=== PATIENT | male | born 1985 | race African-American/Black ===

== ENCOUNTER 2022-04-09 17:59 | Emergency (ER) | payer OTHER, SELFPAY ==
--- NOTE | ~2022-04-09 | XR_ITS ---
EXAMINATION: XR HAND, RIGHT CLINICAL INFORMATION: Pain and swelling COMPARISON: None TECHNIQUE: PA, lateral, and oblique views of the right hand. FINDINGS: Minimally distracted volar angulated fracture of the mid fifth metacarpal is seen with approximately 30 degrees angulation to the fracture. Fifth MCP articular surface is uninvolved. There is associated soft tissue swelling in this location. No other acute bony abnormality. XR/XR hand RT 2V IMPRESSION: Volar angulated mid diaphyseal fifth metacarpal fracture.
[2022-04-09 18:01] VITALS: BP 132/59; PULSE 70; RESP 16; TEMP 35.6; O2SAT 97; BMI 39.7
--- NOTE | 2022-04-09 19:03 | ED.EXTPRO ---
HPI - Extremity Problem General Chief complaint: Extremity Problem Stated complaint: R hand swollen/INJ Time Seen by Provider: 04/09/22 18:51 Source: patient Mode of arrival: ambulatory Limitations: no limitations History of Present Illness HPI Narrative: Patient comes to the emergency room complaining of right-sided hand pain. 1 hour prior to arrival, patient punched a door. Patient complaining of swelling and pain over the 5th metacarpal. Patient did not sustain any other injuries. Related Data Previous Rx's Medication Instructions Recorded ibuprofen 600 mg tablet 600 mg PO TID PRN pain #20 tabs 04/09/22 Allergies Allergy/AdvReac Type Severity Reaction Status Date / Time No Known Allergies Allergy Verified 04/09/22 19:04 Review of Systems Review of Systems: Constitutional : No Weight loss, No Fever, No Chills, No Night Sweats, No Fatigue, No Malaise ENT/Mouth : No Hearing loss, No Ear Pain, No Nasal Congestion, No Sinus Pain, No Hoarseness, No sore throat, No Rhinorrhea, No Swallowing Difficulty Eyes: No Eye Pain, No Swelling, No Redness, No Foreign Body, No Discharge, No Vision Changes Cardiovascular : No Chest Pain, No SOB, No Dyspnea on Exertion, No Orthopnea, No Edema, No Palpitations Respiratory : No Cough, No Sputum, No Wheezing, No Smoke Exposure, No Dyspnea Gastrointestinal : No Nausea, No Vomiting, No Diarrhea, No Constipation, No abdominal Pain, No Hematochezia, No Melena Genitourinary : no irregular bleeding, No Dysuria, No Urinary Frequency, No Hematuria, No Urinary Incontinence, No Urgency, No Flank Pain, No Urinary Flow Changes, No Hesitancy Musculoskeletal : Complaining of right-sided hand pain, No Myalgias, No Joint Swelling Skin : No Skin Lesions, No rash Neuro : No Weakness, No Numbness, No Paresthesias, No Loss of Consciousness, No Dizziness, No Headache Psych : No Anxiety/Panic, No Depression, No SI/HI/AH/VH, No Social Issues, Heme/Lymph: No Bruising, No Bleeding,No Lymphadenopathy Endocrine : No Polyuria, No Polydipsia, No Temperature Intolerance Physical Exam Vital Signs: Vital Signs: Last Vital Signs Temp 96.0 F L 04/09/22 18:01 Pulse 70 04/09/22 18:01 Resp 16 04/09/22 18:01 BP 132/59 L 07/25/22 18:01 Pulse Ox 97 04/09/22 18:01 O2 Del Method 04/09/22 18:01 BMI result Body Mass Index 39.7 Const: Other: Appearance: Alert. Oriented X3. No acute distress. Eyes: Pupils equal, round and reactive to light. ENT: Pharynx normal. Neck: Normal inspection. Neck supple. No lymph nodes noted. No crepitus CVS: Normal heart rate and rhythm. Pulses normal. Normal S1 and S2 Respiratory: No respiratory distress. Breath sounds normal. No Wheezing. No rales Abdomen: Soft and nontender. No rigidity. No distention. Skin: Skin warm and dry. Normal skin color. Normal skin turgor. Extremities: Patient has swelling and mild deformity phipps to the dorsal aspect of the right hand above the 5th metacarpal, patient is able to flex and extend all fingers Neuro: Oriented X 3. No motor deficit. No sensory deficit. Moving all extremities. No slurred speech. CN 2 through 12 grossly intact Psych: calm, cooperative, normal affect Course Course Course Narrative: I discussed the x-ray findings with Dr. Salas. At this time, the skin is not tenting, it is a closed fracture, no need for reduction. Patient instructed to follow-up with Dr. Salas tomorrow, as he may need surgery for this. Patient's hand was splinted. Patient was given p.o. ibuprofen MDM - Extremity (Nontraumatic) Imaging Data Hand x-ray: Radiologist's impression: FINDINGS: Minimally distracted volar angulated fracture of the mid fifth metacarpal is seen with approximately 30 degrees angulation to the fracture. Fifth MCP articular surface is uninvolved. There is associated soft tissue swelling in this location. No other acute bony abnormality. XR/XR hand RT 2V IMPRESSION: Volar angulated mid diaphyseal fifth metacarpal fracture. Discharge Plan Discharge Clinical Impression: Closed boxer's fracture Patient Disposition: Home, Self-Care Instructions: Boxer Fracture (ED) Additional Instructions: Please call Dr. Salas office tomorrow to schedule an appointment. Also, Please follow-up with your primary care physician tomorrow. If you have any worsening or new symptoms, please return to the emergency room or call 911 Prescriptions: New ibuprofen 600 mg tablet 600 mg PO TID PRN (Reason: pain) Qty: 20 0RF Referrals: Brittanie Salas MD [Physician] - 04/10/22 9:00 am (Volar angulated mid diaphyseal 5th metacarpal fracture)
[2022-04-09] MEDS: Ibuprofen 600 MG TABLET PO (19:43)
== END 2022-04-09 20:21 | disposition home or self-care (01) ==
PROVIDERS: Emergency Provider Emergency Medicine
DX: S62.201A Unspecified fracture of first metacarpal bone, right hand, initial encounter for closed fracture (principal); Y29.XXXA Contact with blunt object, undetermined intent, initial encounter; Y93.9 Activity, unspecified; Y92.9 Unspecified place or not applicable; Y99.9 Unspecified external cause status; Z79.899 Other long term (current) drug therapy
CPT/HCPCS: 29130; 73120; 99283; 99284

== ENCOUNTER 2022-04-12 07:19 | Day surgery (SDC) | payer OTHER, SELFPAY ==
--- NOTE | ~2022-04-12 | FL_ITS ---
EXAMINATION: XR FLUOROSCOPY WITH IMAGES CLINICAL INFORMATION: Fracture right fifth metacarpal shaft. ORIF. COMPARISON: Radiographs right hand 04/09/2022 TECHNIQUE: Fluoroscopy performed by Dr. Brittanie Salas. Fluoroscopy time: 18 seconds. Cumulative Dose: 0.6151 mGy. DAP: 0.0372 Gy-cm2. Images: 5. FINDINGS: Fracture mid shaft right fifth metacarpal is reduced with orthopedic pin through long axis of the bone. Fracture fragments are in near-anatomic alignment. No dislocation or destructive process. FL/FL guidance in OR IMPRESSION: Fluoroscopy for orthopedic procedure.
[2022-04-12 07:38] VITALS: BMI 39.7
--- NOTE | 2022-04-12 07:42 | P.OP_ITS ---
Operative Note Operative Note Date of Service: 04/12/22 Narrative: Operative Note Narrative: Preop diagnosis: 1. right 5th Metacarpal Shaft fracture Postop diagnosis: Same Procedure: 1. right 5th Metacarpal fracture closed reduction percutaneous pinning 2. Ulnar nerve block Surgeon: Brittanie Salas MD Anesthesia: General Anesthesia Findings: Metacarpal fracture Implants: 0.062 K-wires times 2 Tourniquet time: None EBL: Minimal Specimen: None Drains: None Complications: None Disposition: Brought to the recovery room in stable condition Plan: Follow-up in 10-14 days for a wound check, postop radiographs and for placement in a short-arm cast or splint Anticipate K-wire removal at 4-5 weeks postop based on interval bony healing Educate the patient that full fracture healing anticipated in approximately 8-12 weeks. Indications: The patient is 36 years old with a right 5th metacarpal shaft fracture . The risks and benefits of operative treatment, including but not limited to risk of damage to blood vessels, nerves, tendons, infection, recurrence, delayed or nonunion of fracture, persistent pain or numbness, incomplete resolution of preoperative symptoms, or need for further surgery were discussed with the patient and they wished to proceed with surgery. Procedure: Once consent was obtained patient was brought back to the operating suite and placed in the operating table in a supine position. Perioperative antibiotics and general anesthesia was administered by the anesthesia team. A tourniquet was applied to the proximal aspect of the right upper extremity and the limb was prepped and draped in a standard surgical fashion. Tourniquet was not inflated during the case. The FluoroScan was used during the case to assist with our fracture reduction and placement of all implants. A closed reduction was performed on the patient's right 5th metacarpal shaft fracture. I placed a single 0.062 K- wire retrograde through the head of the right 5th metacarpal extending proximally across the fracture site to the base of the metacarpal. A 2nd 0.062 K-wire was placed transversely through the neck of the 5th metacarpal extending into the head and neck of the 4th metacarpal. Fracture alignment was assessed for both angular and rotational malalignment. Once satisfied with our fracture reduction and implant placement, the K-wires were bent and cut short and pin caps applied. Final fluoroscopic images were then obtained. The wounds were copiously irrigated with normal saline. An ulnar nerve block was then performed by infiltrating about the ulnar nerve at the wrist with some 1% lidocaine with epinephrine for postop pain control. A Sterile dressing and short volar splint was applied. The patient appears to have tolerated the procedure well and with no complications. All digits were well vascularized at the conclusion of the case.
[2022-04-12 07:48] VITALS: BP 134/72; PULSE 66; RESP 16; TEMP 36.9; O2SAT 98
--- NOTE | 2022-04-12 08:54 | MHC.SHP ---
Pre-Procedural Eval Section A Date of Service: 04/12/22 The patient is an INPATIENT: No Changes since office visit: No Cold of Flu in the past 2 weeks, No New Medical Problems, No Changes in Medication and No Patient answered all questions The History & Physical has been completed within 30 days and I have reviewed it.: Yes Section B Chief Complaint: Displaced fracture of fifth metatarsal bone, right Allergies: Allergies Allergy/AdvReac Type Severity Reaction Status Date / Time No Known Allergies Allergy Verified 04/10/22 13:30 Plan I have reviewed the history and physical and performed a pertinent physical examination on my patient. No changes have occurred unless specified.
--- NOTE | 2022-04-12 09:36 | P.CONAN_ITS ---
HPI - Anesthesia Eval Consult details Narrative: 36 M for metacarpal orif PMFSH Active Problems Active Problems: All Active Problems (Updated 04/10/22 @ 14:39 by Brittanie Salas MD) Fracture of shaft of fifth metacarpal bone of right hand (Acute) Past Medical History Medical History Anxiety and depression Family History Family history of problems with anesthesia: No Surgical History Surgical History History of repair of ACL History of Problems with Anesthesia: No Social History Social History Patient Tobacco Use Status: Former Tobacco user Quit Date: 2019 Use of substances other than those prescribed or required for medical reasons: Yes Substance Use Frequency: Occasionally Are you DNR?: No Advance Directives: No Advance Directives Information Provided: Yes Current occupational status: employed 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 [employer] Allergies Allergy/AdvReac Type Severity Reaction Status Date / Time No Known Allergies Allergy Verified 04/10/22 13:30 Home Medications Medication Instructions Recorded Confirmed Last Taken Type buspirone 10 mg tablet 10 mg PO BID 04/10/22 04/12/22 Unknown History ergocalciferol (vitamin D2) 1,250 1,250 mcg PO QWEEK 04/10/22 04/12/22 Unknown History mcg (50,000 unit) capsule sertraline 100 mg tablet 100 mg PO DAILY 04/10/22 04/12/22 Unknown History Exam Exam Date and Time: April 12, 2022 0936 Height,Weight and Vital Signs: Height 5 ft 11 in Weight 285 lb Last Vital Signs Temp 98.4 F 04/12/22 07:48 Pulse 66 04/12/22 07:48 Resp 16 04/12/22 07:48 BP 134/72 04/12/22 07:48 Pulse Ox 98 04/12/22 07:48 O2 Del Method 04/12/22 07:48 Airway Mallampati Class: II TM Dist: >3cm Neck ROM: Full Partial: Upper and Lower Loose/Missing/Broken Teeth: Yes Assessment and Plan Assessment Anesthesia Assessment: Anesthesia Plan Discussed and Chart Reviewed Final Anesthetic Review Family History of Problems with Anesthesia: No History of Problems with Anesthesia: No NPO: Yes ASA Class: III Final Preanesthetic Review: No Changes in Pt Med Stat, Meds/Allgs Chart Reviewed, Consent Obtained/Reviewed and Anes Risks/Benef Reviewed Patient Risk: Intermediate Procedure Risk: Low Anesthetic Plan Anesthetic Plan: GA Disposition: Standard PACU
[2022-04-12 10:05] VITALS: BP 138/72; PULSE 76; RESP 20; TEMP 36.4; O2SAT 100
[2022-04-12 10:10] VITALS: BP 153/88; PULSE 65; RESP 20; O2SAT 96
[2022-04-12 10:15] VITALS: BP 145/78; PULSE 58; RESP 20; O2SAT 95
[2022-04-12 10:20] VITALS: BP 148/74; PULSE 58; RESP 20; O2SAT 95
[2022-04-12] MEDS: Ketorolac Tromethamine 30 MG/ML VIAL IVPUSH (10:20)
[2022-04-12 10:35] VITALS: BP 139/73; PULSE 74; RESP 20; TEMP 36.5; O2SAT 100
== END 2022-04-12 11:00 | disposition home or self-care (01) ==
LOC: HO.SSS 07:19
PROVIDERS: Visit Provider Orthopaedic Surgery
PROC: (CPT 26615; principal; 2022-04-12 09:10)
DX: S62.326A Displaced fracture of shaft of fifth metacarpal bone, right hand, initial encounter for closed fracture (principal); F41.8 Other specified anxiety disorders; W22.09XA Striking against other stationary object, initial encounter; Y93.89 Activity, other specified; Y92.9 Unspecified place or not applicable; Y99.8 Other external cause status; Z79.899 Other long term (current) drug therapy; Z87.891 Personal history of nicotine dependence
CPT/HCPCS: 26608; J0690; J1100; J1885; J2250; J2405; J2795; J3010

== ENCOUNTER 2022-04-14 14:27 | Emergency (ER) | payer OTHER, SELFPAY ==
[2022-04-14 14:33] VITALS: BP 163/55; PULSE 56; RESP 16; TEMP 36.7; O2SAT 96; BMI 39.7
--- NOTE | 2022-04-14 15:06 | ED.RECABL ---
HPI - Recheck/Abnormal Lab/Rx General Chief Complaint: General Medical Stated Complaint: needs cast rewrapped Time Seen by Provider: 04/14/22 14:30 Source: patient and family Mode of arrival: ambulatory Limitations: no limitations History of Present Illness HPI narrative: 36-year-old male presenting to the ER with complaints of ?need cast re-wrapped . He has a history of a placed fracture of 5th metacarpal bone who is now status post closed reduction with percutaneous pinning by Dr. Osmin Gu on 04/12/2022 who is placed in a partial hard cast/splint with Yevgeniy wrap at that time although reports today he wants to take a shower and he did by the bag to put over his arm although was not tight enough and water got into the splint and now the splint is wet and smells he says. He denies any other symptoms complaints or concerns at this time. Related Data Home Medications Medication Instructions Recorded Confirmed buspirone 10 mg tablet 10 mg PO BID 04/10/22 04/12/22 ergocalciferol (vitamin D2) 1,250 1,250 mcg PO QWEEK 04/10/22 04/12/22 mcg (50,000 unit) capsule sertraline 100 mg tablet 100 mg PO DAILY 04/10/22 04/12/22 Previous Rx's Medication Instructions Recorded ibuprofen 600 mg tablet 600 mg PO TID PRN pain #20 tabs 04/09/22 oxycodone-acetaminophen 5 mg-325 1 tab PO Q6H PRN pain #10 tabs 04/12/22 mg tablet Allergies Allergy/AdvReac Type Severity Reaction Status Date / Time No Known Allergies Allergy Verified 04/14/22 14:33 Review of Systems Review of Systems: Constitutional : No Weight loss, No Fever, No Chills, No Night Sweats, No Fatigue, No Malaise ENT/Mouth : No Hearing loss, No Ear Pain, No Nasal Congestion, No Sinus Pain, No Hoarseness, No sore throat, No Rhinorrhea, No Swallowing Difficulty Eyes: No Eye Pain, No Swelling, No Redness, No Foreign Body, No Discharge, No Vision Changes Cardiovascular : No Chest Pain, No SOB, No Dyspnea on Exertion, No Orthopnea, No Edema, No Palpitations Respiratory : No Cough, No Sputum, No Wheezing, No Smoke Exposure, No Dyspnea Gastrointestinal : No Nausea, No Vomiting, No Diarrhea, No Constipation, No abdominal Pain, No Hematochezia, No Melena Genitourinary : no irregular bleeding, No Dysuria, No Urinary Frequency, No Hematuria, No Urinary Incontinence, No Urgency, No Flank Pain, No Urinary Flow Changes, No Hesitancy Musculoskeletal : + right hand joint pain, No Myalgias, No Joint Swelling Skin : No Skin Lesions, No rash Neuro : No Weakness, No Numbness, No Paresthesias, No Loss of Consciousness, No Dizziness, No Headache Psych : No Anxiety/Panic, No Depression, No SI/HI/AH/VH, No Social Issues, Heme/Lymph: No Bruising, No Bleeding,No Lymphadenopathy Endocrine : No Polyuria, No Polydipsia, No Temperature Intolerance Yes all other systems are reviewed and are negative [facility] Past Medical History Attestation statement: The following information was validated with the patient. 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 Blood pressure normal Heart rate normal. Respiration rate normal. Temperature normal. Oxygen saturation normal. Appearance: Alert. Oriented X3. No acute distress. Head: Normal external exam. Normocephalic. Atraumatic. Eyes: PERRLA. EOMI. Conjunctiva and sclera normal. Eyelids normal. ENT: Pharynx normal. Uvula midline. Moist mucous membranes. Neck: Normal inspection. Neck supple. FROM. CVS: Normal heart rate and rhythm. Respiratory: No respiratory distress. Painless inspiration. Skin: Skin warm and dry. Normal skin color. Normal skin turgor. No rashes/lesions/lacerations noted. Extremities: To the right hand patient has splint in place and when the splint is removed he has percutaneous pinning in place no signs of infection no purulent drainage or erythema he does still have some tenderness. Otherwise all other extremities exhibit normal range of motion nontender. Neuro: Oriented X 3. No motor deficit. No sensory deficit. Reflexes normal. Normal steady gait. No focal neuro deficits noted. Vascular: + radial pulses/+ 2 distal pedal pulses/+2 dorsalis pedis b/l. Normal cap refill. No cyanosis noted to upper extremity nails and lower extremity toes nails. Course Course Course Narrative: New cast/splint was placed. Patient tolerated procedure well. No complications will instruct patient to continue previously prescribed medications as previously prescribed and to follow-up as recommended and he understands and agrees with this plan. MDM - Recheck/Abnormal Lab/Rx Medical Records Attestation: I reviewed the patient's medical records. Discharge Plan Discharge Clinical Impression: Cast in place on extremity Fracture of shaft of fifth metacarpal bone of right hand Qualifiers: Encounter type: sequela Patient Disposition: Home, Self-Care Instructions: Splint Care (ED) Prescriptions: No Action ibuprofen 600 mg tablet 600 mg PO TID PRN (Reason: pain) Qty: 20 0RF oxycodone-acetaminophen 5-325 mg tablet 1 tab PO Q6H PRN (Reason: pain) Qty: 10 0RF Rx Instructions: Partial Fill upon patient request. buspirone 10 mg tablet 10 mg PO BID sertraline 100 mg tablet 100 mg PO DAILY ergocalciferol (vitamin D2) 1,250 mcg (50,000 unit) capsule 1,250 mcg PO QWEEK Referrals: Pipo Montilla MD [Physician] - 1 week Interventions: ED Discharge Assessment Last Done: 04/14/22 15:13 Discharge Date/Time: 04/14/22 15:16
== END 2022-04-14 15:16 | disposition home or self-care (01) ==
LOC: HO.ED 15:13
PROVIDERS: Emergency Provider Student in an Organized Health Care Education/Training Program
DX: S62.306D Unspecified fracture of fifth metacarpal bone, right hand, subsequent encounter for fracture with routine healing (principal); X58.XXXD Exposure to other specified factors, subsequent encounter
CPT/HCPCS: 29125; 99282; 99283

== ENCOUNTER 2022-04-22 21:08 | Emergency (ER) | payer OTHER, SELFPAY ==
--- NOTE | ~2022-04-22 | XR_ITS ---
EXAMINATION: XR HAND, RIGHT CLINICAL INFORMATION: Pain site of previous injury fixation. COMPARISON: Prior radiographs March 2022 TECHNIQUE: PA, lateral, and oblique views of the right hand. FINDINGS: Postoperative changes redemonstrated with perpendicularly oriented K wires present within the fifth metacarpal unchanged. Hardware is intact without surrounding lucency or change in position Alignment remains unchanged near anatomic with transverse fracture in the mid diaphysis. The remaining bones joints and soft tissues are unremarkable. XR/XR hand RT min 3V IMPRESSION: Stable postoperative changes in the fifth metacarpal with fracture noted unchanged.
[2022-04-22 21:46] VITALS: BP 138/43; PULSE 70; RESP 18; TEMP 37.2; O2SAT 97; BMI 40.4
--- NOTE | 2022-04-22 23:24 | ED_ITS ---
HPI - Extremity Problem General Chief complaint: Extremity Problem Stated complaint: hand injury Time Seen by Provider: 04/22/22 23:22 Source: patient Mode of arrival: ambulatory Limitations: no limitations History of Present Illness HPI Narrative: 36-year-old male who his 1 week status post up for a displaced fracture of the shaft of the 5th metacarpal bone on the right hand, patient presents today with discomfort over the 5th metacarpal region he tells me this started earlier today tells me he was stretching out his right upper extremity and he extended his 4th and 5th fingers and started experiencing pain and discomfort. He tells me initially the pain was a 10/10 he took ibuprofen with good results. He reports to me that right now his pain is a 4 or a 5/10 with movement however a 0 at rest. He tells me this surgery was done by Dr. Osmin ramos at the hospital. Reports intermittent tingling to the 4th and 5th finger on the right hand that time radiates to the wrist. He tells me he is scheduled to see Dr. Salas for a postoperative visit on Saturday. Denies any blunt trauma to the area. Denies numbness. Patient is in an ulnar gutter splint. Complaint: joint pain Onset (ago): hour(s) (6) Related Data Home Medications Medication Instructions Recorded Confirmed buspirone 10 mg tablet 10 mg PO BID 04/10/22 04/12/22 ergocalciferol (vitamin D2) 1,250 1,250 mcg PO QWEEK 04/10/22 04/12/22 mcg (50,000 unit) capsule sertraline 100 mg tablet 100 mg PO DAILY 04/10/22 04/12/22 Previous Rx's Medication Instructions Recorded ibuprofen 600 mg tablet 600 mg PO TID PRN pain #20 tabs 04/09/22 oxycodone-acetaminophen 5 mg-325 1 tab PO Q6H PRN pain #10 tabs 04/12/22 mg tablet oxycodone 5 mg capsule 5 mg PO BID PRN pain #6 caps 04/22/22 Allergies Allergy/AdvReac Type Severity Reaction Status Date / Time No Known Allergies Allergy Verified 04/14/22 14:33 Review of Systems Review of Systems: Constitutional : No Weight loss, No Fever, No Chills, No Fatigue, No Malaise ENT/Mouth : No sore throat, No Rhinorrhea Eyes: No Eye Pain, No Swelling, No Redness Cardiovascular : No Chest Pain, No SOB, No Dyspnea on Exertion, No Orthopnea, No Edema, No Palpitations Respiratory : No Cough, No Sputum, No Wheezing Gastrointestinal : No Nausea, No Vomiting, No Diarrhea, No Constipation, No abdominal Pain, No Hematochezia, No Melena Genitourinary : No Dysuria, No Urinary Frequency, No Hematuria, Musculoskeletal : + joint pain, No Myalgias, No Joint Swelling Skin : No Skin Lesions, No rash Neuro : No Weakness, No Numbness, No Dizziness, No Headache All other systems reviewed and are negative Yes all other systems are reviewed and are negative [facility] Past Medical History Attestation statement: The following information was validated with the patient. 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 Oriented X3.? No acute distress.? Head: Normocephalic, atraumatic, no step-offs or deformities Eyes: Pupils equal, round and reactive to light.? ENT: Pharynx normal.? Neck: Normal inspection.? Neck supple.? CVS: Normal heart rate and rhythm.? Pulses normal.? Respiratory: No respiratory distress.? Breath sounds normal.? Abdomen: Soft and nontender.? Skin: Skin warm and dry.? Normal skin color.? Normal skin turgor.? Extremities: No lower extremity edema.? No calf ttp. 5/5 strength to bilateral upper and lower extremities patient in an ulnar gutter splint on the right hand, neurovascularly intact with normal capillary refill bilaterally normal sensation to all upper extremity digits. Pain with range of motion of wrists bilaterally. 2+ radial pulse to the left. Unable to assess radial pulses on the right however 2+ brachial pulses on the right. Able to wiggle all fingers within the splint on the right hand side Neuro: Oriented X 3.? No motor deficit.? No sensory deficit. CN 2-12 intact Course Reevaluation(s) Reevaluation #1: X-ray of the right hand with no acute findings. Pending advised patient to follow-up with hand surgeon, educated him on worrisome signs and symptoms and when to return. I advised him to use caution with the right hand. At this time I feel comfortable with discharge home with prompt PCP and hand surgeon follow- up. Due to severe pain will prescribe patient 3 days of oxycodone. Time: 23:54 MDM - Extremity (Nontraumatic) MDM Narrative Medical decision making narrative: [id number] 36-year-old male presents with pain to his right hand status post stretching his hand, he is 1 week postoperative after having a displaced fracture of the shaft of the 5th metacarpal bone on the right hand which was operated on by Dr. Salas. Physical examination with no acute findings. Plan at this time is to obtain films of the right hand. To rule out any postoperative changes. Based off patient history and physical examination unlikely. Upon my examination neurovascularly intact, no signs of compartment syndrome. There is no reason for me to remove the splint at this time as there was no blunt trauma and patient is complaining of pain only with movement and not at rest. Patient is scheduled to see Dr. Salas on Saturday. Medical Records Attestation: I reviewed the patient's medical records. Lab Data Attestation: I reviewed the patient's lab results. Critical Care Time Critical Care Time Critical Care Time: No Discharge Plan Discharge Clinical Impression: Fracture of shaft of fifth metacarpal bone of right hand Patient Disposition: Home, Self-Care Instructions: Hand Fracture (ED) Additional Instructions: Take your medications as prescribed. If you were prescribed antibiotics today, it is important that you take your medication to their entirety, do not skip any doses, do not finish them early. Follow-up with your primary care provider this week. Return to the emergency department with new or worsening symptoms. Such as fevers, chills, chest pain, shortness of breath, nausea, vomiting, dizziness, headache, vision changes, lethargy In case of emergency call 911 You can take ibuprofen every 6 hours, Tylenol every 4 for [id number] pain. Oxycodone narcotic has been sent to your pharmacy only take this for severe pain. Please note this can cause addiction. Please do not take this while driving or operating machinery as it can make you drowsy. FINDINGS: Postoperative changes redemonstrated with perpendicularly oriented K wires present within the fifth metacarpal unchanged. Hardware is intact without surrounding lucency or change in position Alignment remains unchanged near anatomic with transverse fracture in the mid diaphysis. The remaining bones joints and soft tissues are unremarkable. XR/XR hand RT min 3V IMPRESSION: Stable postoperative changes in the fifth metacarpal with fracture noted unchanged. Prescriptions: New oxycodone 5 mg capsule 5 mg PO BID PRN (Reason: pain) Qty: 6 0RF Rx Instructions: Partial Fill upon patient request. No Action ibuprofen 600 mg tablet 600 mg PO TID PRN (Reason: pain) Qty: 20 0RF oxycodone-acetaminophen 5-325 mg tablet 1 tab PO Q6H PRN (Reason: pain) Qty: 10 0RF Rx Instructions: Partial Fill upon patient request. buspirone 10 mg tablet 10 mg PO BID sertraline 100 mg tablet 100 mg PO DAILY ergocalciferol (vitamin D2) 1,250 mcg (50,000 unit) capsule 1,250 mcg PO QWEEK Referrals: Physician,Unknown J [Primary Care Provider] - 2 days Stand Alone Forms: Work/School Release
== END 2022-04-23 00:02 | disposition home or self-care (01) ==
PROVIDERS: Emergency Provider Student in an Organized Health Care Education/Training Program
DX: M79.641 Pain in right hand (principal); S62.356D Nondisplaced fracture of shaft of fifth metacarpal bone, right hand, subsequent encounter for fracture with routine healing; X58.XXXD Exposure to other specified factors, subsequent encounter
CPT/HCPCS: 73130; 99282; 99283

== ENCOUNTER 2022-04-25 07:23 | Outpatient (REF) | payer OTHER, SELFPAY ==
--- NOTE | ~2022-04-25 | XR_ITS ---
EXAMINATION: XR HAND, RIGHT CLINICAL INFORMATION: Pain COMPARISON: Portions of a previous study 04/22/22 and 04/09/22 TECHNIQUE: Three views of the right hand. FINDINGS: There has been orthopedic fixation of the previously demonstrated midshaft fifth metacarpal fracture. An antegrade opinion has been placed through the distal fifth metacarpal with the proximal aspect in the juxta-articular base of the fifth metacarpal. The fracture lucency is well defined and there is approximately 1 mm of radial displacement. An additional orthogonal pin traverses the distal fifth metacarpal and likely is embedded in the distal fourth metacarpal. No convincing change in position when compared to 04/22/22. The fiberglass has been removed. XR/XR hand RT min 3V IMPRESSION: Previous pin fixation of displaced mid shaft fifth metacarpal fracture. No change in position. No significant healing has occurred.
== END 2022-04-25 07:24 | disposition home or self-care (01) ==
LOC: HO.HOSX 07:23
PROVIDERS: Visit Provider Physician Assistant
DX: S62.326D Displaced fracture of shaft of fifth metacarpal bone, right hand, subsequent encounter for fracture with routine healing (principal)
CPT/HCPCS: 29085; 73130

== ENCOUNTER 2022-05-16 13:01 | Outpatient (REF) | payer OTHER, SELFPAY ==
--- NOTE | ~2022-05-16 | XR_ITS ---
EXAMINATION: XR HAND, RIGHT CLINICAL INFORMATION: Right hand pain. Status post fracture. COMPARISON: 04/25/2022 and studies dating back to 04/09/2022. TECHNIQUE: Three views of the right hand. FINDINGS: Pin is seen traversing the mid shaft fracture of the 5th metacarpal without change in alignment. The fracture line is still evident with a small amount of periosteal new bone formation. A pin is seen traversing the distal fracture fragment and appears to be embedded within the distal 4th metacarpal. No new fracture or dislocation is evident. Joint spaces are maintained. XR/XR hand RT min 3V IMPRESSION: No change in alignment status post pinning of left metacarpal midshaft fracture. A small amount of periosteal new bone formation.
== END 2022-05-16 13:02 | disposition home or self-care (01) ==
LOC: HO.HOSX 13:01
PROVIDERS: Visit Provider Physician Assistant
DX: M79.641 Pain in right hand (principal)
CPT/HCPCS: 73130

== ENCOUNTER 2022-05-30 09:43 | Outpatient (REF) | payer OTHER, SELFPAY ==
--- NOTE | ~2022-05-30 | XR_ITS ---
EXAMINATION: XR HAND, RIGHT CLINICAL INFORMATION: Fracture COMPARISON: Previous x-ray 05/16/2022 TECHNIQUE: PA, lateral, and oblique views of the right hand. FINDINGS: There are 2 K wires. One K wire is across the transverse fracture of the fifth metacarpal bone, fifth MCP joint and proximal phalanx. The transverse component in the proximal phalanx appears changed in orientation, oriented radially as opposed to laterally April 2022. There is a K wire across the distal shafts of the fourth and fifth metacarpal bones that appears unchanged. Nondisplaced fracture of the fifth metacarpal bone appears unchanged in alignment. There is some increasing bony callus formation. Fracture line is still seen. Soft tissues are unremarkable. XR/XR hand RT min 3V IMPRESSION: Change in orientation of the K wire in the fifth finger. K wire across the fourth and fifth distal metacarpal shafts appears unchanged. Fracture unchanged in alignment.
== END 2022-05-30 09:44 | disposition home or self-care (01) ==
LOC: HO.HOSX 09:43
PROVIDERS: Visit Provider Physician Assistant
DX: M79.641 Pain in right hand (principal)
CPT/HCPCS: 73130

== ENCOUNTER 2022-07-04 05:12 | Outpatient (REF) | payer OTHER, SELFPAY | END 2022-07-04 05:13 | disposition home or self-care (01) | LOC: HO.HOSX 05:12 | PROVIDERS: Visit Provider Physician Assistant | DX: Z13.89 Encounter for screening for other disorder (principal) ==

== ENCOUNTER 2022-07-06 05:12 | Outpatient (REF) | payer OTHER, SELFPAY ==
--- NOTE | ~2022-07-06 | XR_ITS ---
EXAMINATION: XR HAND, RIGHT CLINICAL INFORMATION: Pain in right hand COMPARISON: 05/30/2022 TECHNIQUE: PA, lateral, and oblique views of the right hand. FINDINGS: Previously seen fixation pins have been removed. Healing fracture of the midshaft of the fifth metacarpal again seen. Alignment is similar to the prior study. The fracture line remains evident but there is progressive fracture callus formation. No acute fracture or dislocation seen. XR/XR hand RT min 3V IMPRESSION: Continued healing of the fracture of the midshaft of the fifth metacarpal. Fixation pins have been removed.
== END 2022-07-06 05:13 | disposition home or self-care (01) ==
LOC: HO.HOSX 05:12
PROVIDERS: Visit Provider Physician Assistant
DX: M79.641 Pain in right hand (principal)
CPT/HCPCS: 73130

== ENCOUNTER 2022-11-19 09:33 | Outpatient (REF) | payer OTHER, SELFPAY ==
[2022-11-19 09:57] LABS: MANUAL DIFF FLAG NO
[2022-11-19 10:39] LABS: Appearance Urine Clear; Color Urine Yellow; Glucose Urine UA Negative (Negative); Leukocyte Esterase Urine Negative (Negative); Nitrite Urine Negative (Negative); PH 5.5 (5.0-9.0); Specific Gravity - Urine 1.015 (1.005-1.025); Urine Blood Negative (Negative); Urine Ketones Negative (Negative); Urine Protein Negative (Neg-Trace)
[2022-11-19 10:59] LABS: Basophils Percent Auto 0.5 % (0-2); Eosinophils Absolute Auto 0.2 X10*3/uL (0.0-0.4); Eosinophils Percent Auto 2.4 % (0-4); Hematocrit 43.5 % (42.0-52.0); Hemoglobin 13.7 g/dl (14.0-18.0); Imm Gran Abs Auto 0.01 X10*3/uL (0.00-0.03); Imm Gran Pct Auto 0.1 % (0.0-0.4); Lymphocytes Absolute Auto 3.2 X10*3/uL (1.2-4.9); Lymphocytes Percent Auto 41.4 % (20-40); Mean Corpuscular HGB Conc 31.5 g/dl (31.0-36.0); Mean Corpuscular Hemoglobin 26.6 pg (27.0-33.0); Mean Corpuscular Volume 84.3 fL (80.0-98.0); Mean Platelet Volume 10.7 fL (9.4-12.4); Monocytes Absolute Auto 0.7 X10*3/uL (0.1-1.2); Monocytes Percent Auto 9.5 % (2-11); Neutrophils Absolute Auto 3.6 x10*3/uL (2.0-8.3); Neutrophils Percent Auto 46.1 % (45-73); Platelet Count 240 X10*3/uL (160-400); Red Blood Count 5.16 X10*6/uL (4.60-5.80); Red Cell Distribution Width 13.5 % (11.0-16.0); White Blood Count 7.8 X10*3/uL (4.8-10.8)
[2022-11-19 11:29] LABS: Alanine Aminotransferase 19 U/L (0-40); Albumin Level 4.1 g/dL (3.5-5.0); Alkaline Phosphatase 65 U/L (39-117); Anion Gap 12 (12-20); Aspartate Amino Transferase 18 U/L (5-37); Bilirubin Total 0.5 mg/dL (0.0-1.0); Blood Urea Nitrogen 17 mg/dL (9-16); Calcium 9.1 mg/dL (8.4-10.2); Carbon Dioxide 27 mmol/L (22-29); Chloride 109 mmol/L (96-108); Cholesterol 141 mg/dL; Estimated Glomerular Filt Rate > 60; Glucose Fasting 77 mg/dL (60-99); HDL Cholesterol 46 mg/dL; LDL Cholesterol Calculated 90 mg/dl; Sodium 143 mmol/L (135-145); Total Protein 6.9 g/dL (6.5-8.0); Triglycerides 29 mg/dL
[2022-11-19 11:50] LABS: Prostate Specific Antigen Scr 0.29 ng/mL (<0.05-4.0); TSH reflex Free T4 1.04 uIU/mL (0.32-4.0); Vitamin D 25-OH Total 36.9 ng/mL (>30)
== END 2022-11-19 09:34 | disposition home or self-care (01) ==
LOC: HO.LAB 09:33
PROVIDERS: PCP Internal Medicine; Visit Provider Internal Medicine
DX: Z00.00 Encounter for general adult medical examination without abnormal findings (principal); Z12.5 Encounter for screening for malignant neoplasm of prostate; R30.0 Dysuria; E78.00 Pure hypercholesterolemia, unspecified; R35.0 Frequency of micturition; N32.81 Overactive bladder; E55.9 Vitamin D deficiency, unspecified; Z85.72 Personal history of non-Hodgkin lymphomas
CPT/HCPCS: 36415; 80053; 80061; 81003; 82306; 84153; 84443; 85025

== ENCOUNTER 2023-04-16 09:56 | Outpatient (AMB) | payer MEDICAID, SELFPAY ==
--- NOTE | 2023-04-16 09:58 | MHC.PC.OV ---
Vital Signs 04/16/23 09:59 Height 5 ft 11 in Weight 280 lb 2 oz BMI 39.1 BP 124/80 Blood Pressure Location Lt brachial Position Sitting Pulse 74 Pulse Source Pulse Oximeter Pulse Oximetry (%) 98 Oxygen Delivery Method Room Air Intake Visit Reasons: 4 month f/u [employer] Operator Required: No Accompanied by: Self / Same As Patient Allergies No Known Allergies Allergy (Verified 04/16/23 10:46) Medication List - Last Reconciled 04/16/23 by Dayo Strong MD bupropion HCl 100 mg PO BID 90 days buspirone 10 mg PO TID 30 days clonidine HCl 0.1 mg PO TID ergocalciferol (vitamin D2) 1,250 mcg PO QWEEK ibuprofen 600 mg PO TID PRN naproxen 500 mg PO BID PRN oxcarbazepine (Trileptal) 150 mg PO BID trospium 20 mg PO BID 30 days Tobacco use date assessed: 04/16/23 Dental Screening Dental Screen Date: 04/16/23 Did you have a dental visit in the last 12 months?: Yes Did you have a dental problem in the last 6 months where you did not have access to dental care?: No Was dental information given to patient?: Patient has dentist HPI 4 month f/u HPI Details Patient comes in today for his follow up visit States that he feels okay Has been seeing his therapist at [facility] regularly every 1 to 2 weeks and states that he has appt. with psychiatrist tomorrow Is currently on Buspirone 10 mg TID, Bupropion 100 mg BID, Clonidine 0.1 mg TID and Trileptal 150 mg BID and states that his mood disorder is well controlled on his current Rx He denies any headaches or dizziness Denies any chest pains, no SOB No nausea/vomiting, no abdominal pain No change in bowel habits noted Would like to get a referral to see urology about getting a vasectomy States that he used to see a urologist in [place] but he is no longer accepting [facility] at this time Needs his Trospium Rx refilled today [facility] Medical History Anxiety and depression History of cutaneous T-cell lymphoma Obesity (BMI 30-39.9) Overactive bladder Vitamin D deficiency Surgical History History of hand surgery (~04/12/22) History of repair of ACL Social History Housing: Other Patient Tobacco Use Status: Former Tobacco user Quit Date: 2019 e-Cigarette/Vaping Use: Never Used Current occupational status: employed 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 1. Little interest or pleasure in doing things: nearly every day 2. Feeling down, depressed, or hopeless: nearly every day 3. Trouble falling or staying asleep, or sleeping too much: nearly every day 4. Feeling tired or having little energy: nearly every day 5. Poor appetite or overeating: nearly every day 6. Feeling bad about yourself - or that you are a failure or have let yourself or your family down: nearly every day 7. Trouble concentrating on things, such as reading the newspaper or watching television: nearly every day 8. Moving or speaking so slowly that other people could have noticed. Or the opposite - being so fidgety or restless that you have been moving around a lot more than usual: nearly every day 9. Thoughts that you would be better off or of hurting yourself in some way: more than half the days Total score: 26 Depression Screening Interpretation: Positive Depression Screening Follow-up: Existing condition and In treatment 73158 - PHQ-9 Billing: Yes Source: Developed by Drs. Robert Whalen, Odilia Ang, Delmar Ray and colleagues, with an educational rakan from [employer]. Thrive Questionnaire Date Thrive assessed: 04/16/23 I am a: Patient What is your living situation today?: I have a steady place to live Within the past 12 months, did the food you bought not last and you didn't have the money to get more?: Never true Within the past 12 months, did you worry whether your food would run out before you got money to buy more?: Never true Do you have trouble paying for medicines?: No Do you have trouble getting transportation to medical appointments?: No Do you have trouble paying your heating and electricity bill?: No Do you have trouble taking care of your child, family member or friend?: No Do you have trouble with day-to-day activities such as bathing, preparing meals, shopping, managing finances, etc.?: No Are you currently unemployed and looking for a job?: No Are you interested in more education?: No Please select the resources that you would like help with: None Currently or been in a relationship where the following occur: no concerns reported AUDIT C Alcohol Use Questionnaire (AUDIT-C) 1. How often do you have a drink containing alcohol?: Never 3. How often do you have six or more drinks on one occasion?: Never Total Score: 0 Score Reviewed/Action Taken: Yes EMILE-7 AMB Questionnaire EMILE-7 Date EMILE - 7 assessed: 04/16/23 Feeling nervous, anxious, or on edge: 3 = Nearly every day Not being able to stop or control worryin = Nearly every day Worrying too much about different things: 3 = Nearly every day Trouble relaxin = Nearly every day Being so restless that it is hard to sit still: 3 = Nearly every day Becoming easily annoyed or irritable: 3 = Nearly every day Feeling afraid as if something awful might happen: 3 = Nearly every day Total EMILE-7 score (0-4 normal; 5-9 mild; 10-14 moderate; 15-21 severe): 21 Source: Developed by Drs. Robert Whalen, Odilia Ang, Delmar Ray and colleagues, with an educational rakan from [employer]. Review of Systems Const Denies fatigue, Denies fever(s) and Denies headache(s) ENT Denies dysphagia, Denies dizziness, Denies headache(s), Denies odynophagia and Denies sore throat Card Denies chest pain, Denies palpitations and Denies dyspnea Resp Denies cough and Denies dyspnea GI Denies abdominal pain, Denies constipation, Denies dysphagia, Denies heartburn, Denies diarrhea, Denies nausea, Denies odynophagia and Denies vomiting Denies dysuria, Denies nocturia and Denies urinary frequency Neuro Denies dizziness and Denies headache(s) Psych Reports anxiety (controlled) and Reports depression (controlled on current Rx) Endo Denies fatigue and Denies palpitations Physical exam (Primary Care) Vital Signs: Last Vital Signs Pulse 74 04/16/23 09:59 BP 124/80 04/16/23 09:59 Pulse Ox 98 04/16/23 09:59 Oxygen Delivery Method Room Air 04/16/23 09:59 BMI result Body Mass Index 39.1 Tobacco/Smoking Status: Tobacco use Status Tobacco use date assessed 04/16/23 04/16/23 10:04 Patient Tobacco Use Status Former Tobacco user 04/16/23 10:04 e-Cigarette/Vaping Use Never Used 04/16/23 10:04 PHQ-9: PHQ-9 Score PHQ-9: Total score 26 04/16/23 10:04 Depression Screening Interpretation: Positive Depression Screening Follow-up: Existing condition and In treatment Thrive Assessment: Date of Thrive Assessment Date Thrive assessed 04/16/23 04/16/23 10:04 Currently or been in a relationship where the following occur: no concerns reported Const General: no acute distress and alert HENMT Ears: TM's normal bilaterally and EAC's normal Throat: Yes posterior oropharynx normal and Yes tonsils normal (no TP congestion) Neck Neck: Yes no lymphadenopathy and Yes supple Resp Auscultation: clear to auscultation bilaterally, no rales and no wheezes Cardio Rate: regular rate Rhythm: regular rhythm Heart sounds: no murmurs GI Palpation (GI): Soft to palpation and nontender Auscultation: normal bowel sounds Skin General skin exam: no rashes or lesions noted Extrem General: Yes no clubbing, cyanosis or edema Assessment and Plan Assessment & Plan (1) History of cutaneous T-cell lymphoma: Code(s): Z85.72 - Personal history of non-Hodgkin lymphomas Plan: Was reportedly diagnosed with cutaneous T-cell lymphoma about 10 years ago and treated with topical steroids Was following up with oncology at [facility] regularly in the past but states that he has not been seen in over 2 years now and would like to just see specialists locally if needed Will refer him to oncology at [facility] for continuing surveillance and follow up (2) Elevated blood pressure reading: Code(s): R03.0 - Elevated blood-pressure reading, without diagnosis of hypertension Plan: His BP currently remains well-controlled Reinforced low sodium diet Patient instructed to continue monitoring his blood pressure regularly (3) Vitamin D deficiency: Code(s): E55.9 - Vitamin D deficiency, unspecified Plan: Continue Vitamin D2 1250 mcg once a week (4) Overactive bladder: Code(s): N32.81 - Overactive bladder Plan: Continue Trospium 20 mg BID - Rx refilled Was seeing urology in [place] for follow up previously but they no longer accept [facility] Will refer to [facility] for follow up and continuing management (5) Sterilization consult: Code(s): Z30.09 - Encounter for other general counseling and advice on contraception Plan: Per request, will also refer him to urology for evaluation and consideration for vasectomy (6) Anxiety and depression: Code(s): F41.9 - Anxiety disorder, unspecified; F32.A - Depression, unspecified Plan: Continue Bupropion 100 mg BID, Buspirone 10 mg TID, Clonidine 0.1 mg TID and Trileptal 150 mg BID He continues to see his therapist at [facility] regularly and now has an appointment to see a prescribing psychiatrist tomorrow (7) Obesity (BMI 30-39.9): Code(s): E66.9 - Obesity, unspecified Plan: Reinforced diet/exercise as tolerated/lose weight Plan To return in 4 months for his next annual physical examination Orders: Orders Comprehensive [place]. Panel Fast 08/19/23 R03.0 - Elevated blood-pressure reading, without diagnosis of hypertension, Z00.00 - Encounter for general adult medical examination without abnormal findings, Z85.72 - Personal history of non-Hodgkin lymphomas Lipid Panel 08/19/23 E78.00 - Pure hypercholesterolemia, unspecified, Z00.00 - Encounter for general adult medical examination without abnormal findings Complete Blood Count Auto Diff 08/19/23 Z00.00 - Encounter for general adult medical examination without abnormal findings, Z85.72 - Personal history of non-Hodgkin lymphomas TSH reflex Free T4 08/19/23 E66.9 - Obesity, unspecified, R03.0 - Elevated blood-pressure reading, without diagnosis of hypertension, Z00.00 - Encounter for general adult medical examination without abnormal findings, Z85.72 - Personal history of non-Hodgkin lymphomas Vitamin D 25-OH Total 08/19/23 E55.9 - Vitamin D deficiency, unspecified, Z00.00 - Encounter for general adult medical examination without abnormal findings UA CC w/rflx Micro + Cult 08/19/23 R30.0 - Dysuria, Z00.00 - Encounter for general adult medical examination without abnormal findings Referrals Urology Referral N32.81 - Overactive bladder, Z30.09 - Encounter for other general counseling and advice on contraception Hematology & Oncology Referral Z85.72 - Personal history of non-Hodgkin lymphomas Medications: Changed From trospium 20 mg PO BID To trospium 20 mg PO BID 60 tabs 3RF 30 days Coding Level of Care Code Est Pt Level 4 (18933) Diagnoses History of cutaneous T-cell lymphoma Z85.72 Elevated blood pressure reading R03.0 Vitamin D deficiency E55.9 Overactive bladder N32.81 Sterilization consult Z30.09 Anxiety and depression F41.9; F32.A Obesity (BMI 30-39.9) E66.9
[2023-04-16 09:59] VITALS: BP 124/80; PULSE 74; O2SAT 98; BMI 39.1
== END 2023-04-16 10:53 | disposition home or self-care (01) ==
PROVIDERS: Visit Provider Internal Medicine
DX: F41.9 Anxiety disorder, unspecified (principal); Z85.72 Personal history of non-Hodgkin lymphomas; E55.9 Vitamin D deficiency, unspecified; N32.81 Overactive bladder; R03.0 Elevated blood-pressure reading, without diagnosis of hypertension; Z30.09 Encounter for other general counseling and advice on contraception; F32.A Depression, unspecified; E66.9 Obesity, unspecified
CPT/HCPCS: 99214

== ENCOUNTER 2023-04-29 08:06 | Outpatient (REF) | payer MEDICAID, SELFPAY ==
[2023-05-01 21:28] LABS: TS Negative Control Passed; TS Panel A 4; TS Panel B 9; TS Positive Control Passed; TSpotTB Positive (Negative)
== END 2023-04-29 08:07 | disposition home or self-care (01) ==
LOC: HO.LAB 08:06
PROVIDERS: PCP Internal Medicine; Visit Provider Internal Medicine
DX: Z11.1 Encounter for screening for respiratory tuberculosis (principal)
CPT/HCPCS: 36415; 86481

== ENCOUNTER 2023-05-04 10:40 | Outpatient (REF) | payer MEDICAID, SELFPAY ==
--- NOTE | ~2023-05-04 | XR_ITS ---
EXAMINATION: XR CHEST CLINICAL INFORMATION: Nonspecific reaction to tuberculin skin test. COMPARISON: None available. TECHNIQUE: 2 views of the chest were obtained. FINDINGS: Lungs are well-inflated and clear. Trachea is midline in position. No interstitial disease, consolidation or pulmonary nodule. No pleural effusion or pneumothorax. Cardiac silhouette and pulmonary vessels are normal in size. The mediastinum and derek have normal contour. The visualized bones and upper abdomen are unremarkable. XR/XR chest 2V IMPRESSION: Normal radiographic examination of the chest. No evidence of acute or chronic infection.
== END 2023-05-04 10:41 | disposition home or self-care (01) ==
LOC: HO.XRAY 10:40
PROVIDERS: PCP Internal Medicine; Visit Provider Internal Medicine
DX: R76.11 Nonspecific reaction to tuberculin skin test without active tuberculosis (principal)
CPT/HCPCS: 71046

== ENCOUNTER 2024-04-07 16:59 | Outpatient (AMB) | payer OTHER, SELFPAY ==
[2024-04-07 17:01] VITALS: BP 128/82; PULSE 78; O2SAT 98; BMI 39.8
--- NOTE | 2024-04-07 17:01 | MHC.PC.OV ---
Vital Signs 04/07/24 17:01 Height 5 ft 11 in Weight 285 lb 8 oz BMI 39.8 BP 128/82 Blood Pressure Location Lt brachial Position Sitting Pulse 78 Pulse Source Pulse Oximeter Pulse Oximetry (%) 98 Oxygen Delivery Method Room Air Intake Visit Reasons: Physical, referrals, medication refills Compensation Intern Required: No Accompanied by: Self / Same As Patient Allergies No Known Allergies Allergy (Verified 04/07/24 17:13) Medication List - Last Reconciled 04/07/24 by Dayo Strong MD bupropion HCl XL 300 mg PO DAILY buspirone 20 mg PO TID clonidine HCl 0.1 mg PO .FOUR TIME A DAY ergocalciferol (vitamin D2) 1,250 mcg PO QWEEK naproxen 500 mg PO BID PRN 30 days oxcarbazepine 600 mg PO BID trospium 20 mg PO BID 30 days Tobacco use date assessed: 04/16/23 Dental Screening Dental Screen Date: 04/16/23 HPI Physical, referrals, medication refills HPI Details Patient comes in today for his annual physical examination States that he needs a few of his Rx refilled, including his Rx for Trileptal, which he usually gets from psychiatry but he has not been able to get ahold of them recently He used to go to [facility] for his psychiatry follow up but switched over to [facility] a few months ago as he was supposedly not happy with the services that he was getting from [facility] Patient would also like to get a referral again to Urology for consideration for vasectomy He was referred to Urology for the same reason last year but he was not able to follow through with the referral Adds that he has been experiencing also some blurring of his vision recently and he has been having trouble seeing and driving at night due to his impaired vision - would like to get this checked out before it gets worse States that he feels okay otherwise He denies any headaches or dizziness Denies any chest pains, no shortness of breath No nausea /vomiting, no abdominal pain No change in bowel habits noted He still has some urinary incontinence - is on Trospium and needs this Rx refilled as well [facility] Medical History Anxiety and depression History of cutaneous T-cell lymphoma Obesity (BMI 30-39.9) Overactive bladder Vitamin D deficiency Surgical History History of hand surgery (~04/12/22) History of repair of ACL Social History Housing: Other Patient Tobacco Use Status: Former Tobacco user e-Cigarette/Vaping Use: Never Used Current occupational status: employed 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 1. Little interest or pleasure in doing things: nearly every day 2. Feeling down, depressed, or hopeless: nearly every day 3. Trouble falling or staying asleep, or sleeping too much: more than half the days 4. Feeling tired or having little energy: more than half the days 5. Poor appetite or overeating: nearly every day 6. Feeling bad about yourself - or that you are a failure or have let yourself or your family down: nearly every day 7. Trouble concentrating on things, such as reading the newspaper or watching television: nearly every day 8. Moving or speaking so slowly that other people could have noticed. Or the opposite - being so fidgety or restless that you have been moving around a lot more than usual: nearly every day 9. Thoughts that you would be better off or of hurting yourself in some way: more than half the days Total score: 24 Depression Screening Interpretation: Positive Depression Screening Follow-up: Existing condition and In treatment Depression Screening Done: Yes 51358 - PHQ-9 Billing: Yes Source: Developed by Drs. Robert Whalen, Odilia Ang, Delmar Ray and colleagues, with an educational rakan from [employer]. Thrive Questionnaire Date Thrive assessed: 04/07/24 I am a: Patient What is your living situation today?: I have a steady place to live Within the past 12 months, did the food you bought not last and you didn't have the money to get more?: Never true Within the past 12 months, did you worry whether your food would run out before you got money to buy more?: Never true Do you have trouble paying for medicines?: No Do you have trouble getting transportation to medical appointments?: No Do you have trouble paying your heating and electricity bill?: No Do you have trouble taking care of your child, family member or friend?: No Do you have trouble with day-to-day activities such as bathing, preparing meals, shopping, managing finances, etc.?: No Are you currently unemployed and looking for a job?: No Are you interested in more education?: No Please select the resources that you would like help with: None Currently or been in a relationship where the following occur: No concerns reported THRIVE Score: 0 AUDIT C Alcohol Use Questionnaire (AUDIT-C) 1. How often do you have a drink containing alcohol?: Never 3. How often do you have six or more drinks on one occasion?: Never Total Score: 0 Score Reviewed/Action Taken: Yes EMILE-7 AMB Questionnaire EMILE-7 Date EMILE - 7 assessed: 04/07/24 Feeling nervous, anxious, or on edge: 3 = Nearly every day Not being able to stop or control worryin = Nearly every day Worrying too much about different things: 2 = More than half the days Trouble relaxin = Nearly every day Being so restless that it is hard to sit still: 2 = More than half the days Becoming easily annoyed or irritable: 3 = Nearly every day Feeling afraid as if something awful might happen: 3 = Nearly every day Total EMILE-7 score (0-4 normal; 5-9 mild; 10-14 moderate; 15-21 severe): 19 Source: Developed by Drs. Robert Whalen, Odilia Ang, Delmar Ray and colleagues, with an educational rakan from [employer]. EMILE-7 Assessment Billing EMILE-7 Assessment Tool: EMILE-7 Assessment 12180 Review of Systems Const Denies chills, Denies fatigue, Denies fever(s), Denies headache(s), Denies malaise and Denies weakness Eyes Reports blurry vision, Denies change in vision, Denies irritation and Denies itchy eyes ENT Denies dysphagia, Denies dizziness, Denies otalgia, Denies headache(s), Denies nasal congestion, Denies neck pain, Denies odynophagia and Denies sore throat Card Denies chest pain, Denies rapid heart rate, Denies irregular heart rhythm, Denies palpitations and Denies dyspnea Resp Denies chest congestion, Denies cough, Denies dyspnea and Denies wheezing GI Denies abdominal pain, Denies bloating, Denies constipation, Denies dysphagia, Denies heartburn, Denies diarrhea, Denies nausea, Denies odynophagia and Denies vomiting Denies hematuria, Denies difficulty urinating, Denies dysuria, Reports urinary frequency, Reports urinary incontinence and Denies urinary urgency Musc Denies back pain, Denies arthralgias, Denies joint swelling, Denies muscle weakness and Denies neck pain Skin/Breast Denies change in pigmentation, Denies lesions, Denies rash and Denies unusual bruising Neuro Denies dizziness, Denies headache(s), Denies paresthesias and Denies weakness Psych Reports anxiety (controlled) and Reports depression (controlled on current Rx) Endo Denies fatigue and Denies palpitations Aller/Immun Denies itchy eyes and Denies wheezing Physical exam (Primary Care) Vital Signs: Last Vital Signs Pulse 78 04/07/24 17:01 BP 128/82 04/07/24 17:01 Pulse Ox 98 04/07/24 17:01 Oxygen Delivery Method Room Air 04/07/24 17:01 BMI result Body Mass Index 39.8 Tobacco/Smoking Status: Tobacco use Status Tobacco use date assessed 04/16/23 04/07/24 17:10 Patient Tobacco Use Status Former Tobacco user 04/07/24 17:10 e-Cigarette/Vaping Use Never Used 04/07/24 17:10 PHQ-9: PHQ-9 Score PHQ-9: Total score 04/07/24 18:57 Depression Screening Interpretation: Positive Depression Screening Follow-up: Existing condition and In treatment Thrive Assessment: Date of Thrive Assessment Date Thrive assessed 04/07/24 04/07/24 17:10 Currently or been in a relationship where the following occur: No concerns reported Const General: no acute distress, alert and awake Orientation/consciousness: patient oriented x3 HENMT Head: Yes normocephalic and Yes atraumatic Ears: external ears normal, TM's normal bilaterally and EAC's normal General nose exam: No nasal discharge present Face and sinus: Yes normal facial exam and Yes sinuses nontender Teeth and gingiva: dentition normal Throat: Yes posterior oropharynx normal and Yes tonsils normal (no TP congestion) Eyes Eyelids: Yes eyelids normal Conjunctivae: conjunctivae normal Pupils: Equal, round and reactive pupils present EOM: EOMs intact bilaterally Neck Neck: Yes no lymphadenopathy and Yes supple Thyroid: Thyroid normal Resp Auscultation: clear to auscultation bilaterally, no rales and no wheezes Cardio Rate: regular rate Rhythm: regular rhythm Heart sounds: no murmurs GI Palpation (GI): Soft to palpation, nontender and No hepatosplenomegaly present Auscultation: normal bowel sounds General: Yes no CVA tenderness Back/Spine/Pelvis Back: no CVA tenderness Thoracic/Lumbar Spine: thoracic and lumbar spine normal to inspection Skin Lesions: no lesions Rashes: no rashes Neuro General: patient oriented x3, moves all extremities, no focal motor deficits and CN's II-XI intact bilaterally Cranial nerves: Yes Equal, round and reactive pupils present Cognition (Neuro): normal cognition Gait exam (Neuro): Normal gait present Extrem General: Yes no clubbing, cyanosis or edema Assessment and Plan Assessment & Plan (1) Annual physical exam: Code(s): Z00.00 - Encounter for general adult medical examination without abnormal findings Plan: Check labs (2) History of cutaneous T-cell lymphoma: Code(s): Z85.72 - Personal history of non-Hodgkin lymphomas Plan: Patient was reportedly diagnosed with cutaneous T-cell lymphoma about 10 years ago and treated with topical steroids He was following up with oncology at [facility] regularly in the past but states that he has not been seen in over 2 years now and would like to just see specialists locally if needed He was referred to [place]ology here at [facility] [place] for continuing surveillance and follow up but had some issues with his insurance and the referral was unable to be completed then Will redo referral now that patient has a different insurance coverage (3) Elevated blood pressure reading: Code(s): R03.0 - Elevated blood-pressure reading, without diagnosis of hypertension Plan: His BP currently remains well-controlled Reinforced low sodium diet Patient is instructed to continue monitoring his blood pressure regularly (4) Vitamin D deficiency: Code(s): E55.9 - Vitamin D deficiency, unspecified Plan: Continue Vitamin D2 1250 mcg once a week Will recheck his vitamin D level for follow-up (5) Overactive bladder: Code(s): N32.81 - Overactive bladder Plan: Continue Trospium 20 mg BID - Rx refilled He was seeing urology in [place] for follow up previously but they no longer accept [facility] Will refer him again to [facility] for follow up and continuing management - his referral last year did not go through due to some insurance issues (6) Sterilization consult: Code(s): Z30.09 - Encounter for other general counseling and advice on contraception Plan: Per request, will also refer him again to urology for evaluation and consideration for vasectomy (7) 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: Code(s): H54.3 - Unqualified visual loss, both eyes Plan: Will refer him to ophthalmology for further evaluation and management (8) Anxiety and depression: Code(s): F41.9 - Anxiety disorder, unspecified; F32.A - Depression, unspecified Plan: Continue Bupropion XL 300 mg QD, Buspirone 20 mg TID, Clonidine 0.1 mg QID and Trileptal 600 mg BID He was seeing his therapist and psychiatrist at [facility] previously but has since switched over to [facility] aas he claims that he was not happy with the service he was receiving at [facility] He has been experiencing some difficulty getting in touch with his psychiatrist at [facility] currently and is unable to get his Rx refilled - will provide patient for now with some temporary refills on his Rx until he is able to reach out to his psychiatrist at [facility] (9) Obesity (BMI 30-39.9): Code(s): E66.9 - Obesity, unspecified Plan: Reinforced diet/exercise as tolerated/lose weight Plan Follow up in 4 months Orders: Orders Lipid Panel 04/07/24 E78.00 - Pure hypercholesterolemia, unspecified, Z00.00 - Encounter for general adult medical examination without abnormal findings TSH reflex Free T4 04/07/24 E78.00 - Pure hypercholesterolemia, unspecified, Z00.00 - Encounter for general adult medical examination without abnormal findings Vitamin D 25-OH Total 04/07/24 E55.9 - Vitamin D deficiency, unspecified, Z00.00 - Encounter for general adult medical examination without abnormal findings Complete Blood Count Auto Diff 04/07/24 D64.9 - Anemia, unspecified, Z00.00 - Encounter for general adult medical examination without abnormal findings Comprehensive [place]. Panel Fast 04/07/24 E78.00 - Pure hypercholesterolemia, unspecified, Z00.00 - Encounter for general adult medical examination without abnormal findings UA CC w/rflx Micro + Cult 04/07/24 R30.0 - Dysuria, Z00.00 - Encounter for general adult medical examination without abnormal findings Referrals Ophthalmology Referral H54.3 - Unqualified visual loss, both eyes Urology Referral N32.81 - Overactive bladder, Z30.09 - Encounter for other general counseling and advice on contraception Hematology & Oncology Referral D50.9 - Iron deficiency anemia, unspecified Medications: New oxcarbazepine 600 mg PO BID 30 days 60 tabs 0RF Changed From naproxen 500 mg PO BID PRN pain To naproxen Take with food 500 mg PO BID 30 days PRN 60 tabs 1RF pain From buspirone 10 mg PO TID 30 days 90 tabs 3RF To buspirone 20 mg PO TID Refilled trospium 20 mg PO BID 30 days 60 tabs 3RF trospium 20 mg PO BID 30 days 60 tabs 3RF naproxen Take with food 500 mg PO BID 30 days PRN 60 tabs 1RF pain Coding Level of Care Code Est Pt Prev Care 18-39y(39030) Diagnoses Annual physical exam Z00.00 History of cutaneous T-cell lymphoma Z85.72 Elevated blood pressure reading R03.0 Vitamin D deficiency E55.9 Overactive bladder N32.81 Sterilization consult Z30.09 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 H54.3 Anxiety and depression F41.9; F32.A Obesity (BMI 30-39.9) E66.9 Additional Codes EMILE-7 Assessment Billing - EMILE-7 Assessment Tool: EMILE-7 Assessment 41203 ([id number])
== END 2024-04-07 17:31 | disposition home or self-care (01) ==
PROVIDERS: PCP Internal Medicine; Visit Provider Internal Medicine
DX: Z00.00 Encounter for general adult medical examination without abnormal findings (principal); Z85.72 Personal history of non-Hodgkin lymphomas; R03.0 Elevated blood-pressure reading, without diagnosis of hypertension; E55.9 Vitamin D deficiency, unspecified; N32.81 Overactive bladder; H54.3 Unqualified visual loss, both eyes; F41.9 Anxiety disorder, unspecified; F32.A Depression, unspecified; E66.9 Obesity, unspecified
CPT/HCPCS: 99395

== ENCOUNTER 2024-06-03 08:05 | Outpatient (REF) | payer OTHER, SELFPAY ==
[2024-06-03 08:16] LABS: MANUAL DIFF FLAG NO
[2024-06-03 08:30] LABS: Basophils Percent Auto 0.4 % (0-2); Eosinophils Absolute Auto 0.2 X10*3/uL (0.0-0.4); Eosinophils Percent Auto 2.3 % (0-4); Hematocrit 40.8 % (42.0-52.0); Hemoglobin 13.3 g/dl (14.0-18.0); Imm Gran Abs Auto 0.02 X10*3/uL (0.00-0.03); Imm Gran Pct Auto 0.3 % (0.0-0.4); Lymphocytes Absolute Auto 3.2 X10*3/uL (1.2-4.9); Lymphocytes Percent Auto 45.7 % (20-40); Mean Corpuscular HGB Conc 32.6 g/dl (31.0-36.0); Mean Corpuscular Hemoglobin 27.1 pg (27.0-33.0); Mean Corpuscular Volume 83.3 fL (80.0-98.0); Monocytes Absolute Auto 0.6 X10*3/uL (0.1-1.2); Neutrophils Absolute Auto 2.9 x10*3/uL (2.0-8.3); Neutrophils Percent Auto 42.3 % (45-73); Platelet Count 223 X10*3/uL (160-400); White Blood Count 6.9 X10*3/uL (4.8-10.8)
[2024-06-03 09:09] LABS: Alanine Aminotransferase 22 U/L (0-40); Alkaline Phosphatase 60 U/L (39-117); Anion Gap 8 (12-20); Aspartate Amino Transferase 17 U/L (5-37); Bilirubin Total 0.4 mg/dL (0.0-1.0); Blood Urea Nitrogen 17 mg/dL (9-16); Calcium 9.2 mg/dL (8.4-10.2); Carbon Dioxide 28 mmol/L (22-29); Chloride 108 mmol/L (96-108); Cholesterol 138 mg/dL (<200); Estimated Glomerular Filt Rate > 60; Glucose Fasting 85 mg/dL (60-99); HDL Cholesterol 42 mg/dL (>40); LDL Cholesterol Calculated 86 mg/dL (<100); Potassium 4.4 mmol/L (3.3-5.1); Sodium 140 mmol/L (135-145); Total Protein 7.1 g/dL (6.5-8.0); Triglycerides 51 mg/dL (<150)
[2024-06-03 09:29] LABS: TSH reflex Free T4 1.09 uIU/mL (0.32-4.0); Vitamin D 25-OH Total 42.3 ng/mL (>30)
[2024-06-03 09:49] LABS: Appearance Urine Clear; Color Urine Yellow; Glucose Urine UA Negative (Negative); Leukocyte Esterase Urine Negative (Negative); Nitrite Urine Negative (Negative); Urine Blood Negative (Negative); Urine Ketones Negative (Negative); Urine Protein Negative (Neg-Trace)
== END 2024-06-03 08:06 | disposition home or self-care (01) ==
LOC: HO.LAB 08:05
PROVIDERS: PCP Internal Medicine; Visit Provider Internal Medicine
DX: Z00.00 Encounter for general adult medical examination without abnormal findings (principal); Z13.9 Encounter for screening, unspecified; Z85.72 Personal history of non-Hodgkin lymphomas; R03.0 Elevated blood-pressure reading, without diagnosis of hypertension; R30.0 Dysuria; E55.9 Vitamin D deficiency, unspecified; E66.9 Obesity, unspecified
CPT/HCPCS: 36415; 51798; 80053; 80061; 81003; 82306; 84443; 85025; 99202

== ENCOUNTER 2024-06-03 14:29 | Outpatient (AMB) | payer OTHER, SELFPAY ==
--- NOTE | 2024-06-03 15:08 | A.OFFVIS_ITS ---
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 Strong. He has a past medical history of vitamin-D deficiency, obesity, overactive bladder, anxiety, depression, and cutaneous T-cell lymphoma. He presents to the office today for - vasectomy evaluation Vasectomy evaluation The patient presents for vasectomy consultation.? He is currently He has fathered -?4 children with 2 partners? The youngest child is -[id number] His partner is aware and permissive for a vasectomy Current form of control is condoms Current employment is [id number] dad The vasectomy may be complicated due to a history of ?no complicating issues Patient education has been provided via AUA video, via printed information, risks of failure, recovery time, bruising and potential pain syndrome have been stressed Discussion today focused on the presence of vasectomy and the risks, benefits and alternatives that are available. Vasectomy as intended as a permanent form of control. Printed information and literature was provided to the patient. Overall there is a one in 2500 failure rate. This can occur at any time after vasectomy. Risks were discussed highlighting hematoma, spermatocele, epididymal congestion, development of sperm antibodies, and development of chronic pain estimated between 1-5%. The procedure was reviewed in detail. Anatomical diagrams of the male genitalia were used to explain the location of the vas deferens. The vas deferens will be transected, the proximal end will be cauterized, a metal clip would be applied to separate the 2 vas deferens ends. It was explained the procedure will be done in the office and takes approximately 10-15 minutes. Less common problems that arise with vasectomy include hematoma, bleeding, allergic reaction to anesthetic, epididymal infection, epididymal congestion, scrotal discomfort, spermatic leak, spermatic granuloma and the possibility of antisperm antibodies. He understands these risks and wishes to proceed. Consent was signed at the office today. He also understands that it takes 12 weeks for sperm to fully clear the system. He will need to provide a semen sample at 12 weeks and if this is not clear a 2nd sample at 16 weeks. Medical clearance to stop using protection will only be provided if he satisfies published criteria for sperm clearance. 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 [employer] Cognitive needs: No Hearing needs: No Vision needs: No Review of Systems Const All systems reviewed & are unremarkable except as noted in HPI and below Physical Exam Const General: cooperative, healthy appearing, comfortable, no acute distress, well developed, alert and awake Nutritional Appearance: overweight Orientation/consciousness: patient oriented x3 Limitations: no limitations HEENT Head: Yes normal to inspection, Yes normocephalic and Yes atraumatic Ears: hearing grossly normal bilaterally Eyes General: appearance normal, both eyes and all related structures Neck Neck: Yes normal visual inspection and Yes trachea midline Chest Chest palpation & inspection: normal inspection of the chest Resp Effort & Inspection: normal respiratory effort and able to speak in complete sentences Cardio Rate: regular rate GI Inspection: Yes normal to inspection General: Yes no CVA tenderness Back/Spine/Pelvis Back: no CVA tenderness Skin General skin exam: no rashes or lesions noted Neuro General: patient oriented x3 Extrem General: Yes normal to inspection Psych Appearance: grossly normal and well kempt Mental Status: mental status grossly normal Speech and movement: Normal speech and movement present and Clear speech present Affect: normal affect Attitude: cooperative Thought process: Normal thought process present Thought content: Normal thought content present Insight: Fair insight present (Psych) Judgement: Fair judgement present (Psych) Office Procedures Post Void Residual Post Residual Void Post Void Residual (PVR): 20 [id number] Void Residual by ultrasound Results AMB Urinalysis, Automated UA Leukoctes 0 Michael/uL Last Edit by [employer] on 06/03/24 15:27 UA Nitrite Negative Last Edit by [employer] on 06/03/24 15:27 UA Urobilinogen 0.2 mg/dL Last Edit by [employer] on 06/03/24 15:27 UA Protein 0 mg/dL Last Edit by [employer] on 06/03/24 15:27 UA pH 7.5 Last Edit by [employer] on 06/03/24 15:27 UA Blood 0 Joe/uL Last Edit by [employer] on 06/03/24 15:27 UA Specific Mulhall 1.015 Last Edit by [employer] on 06/03/24 15:27 UA Ketone Negative Last Edit by [employer] on 06/03/24 15:27 UA Bilirubin 0 mg/dL Last Edit by [employer] on 06/03/24 15:27 UA Glucose 0 mg/dL Last Edit by [employer] on 06/03/24 15:27 Results Reviewed Results Reviewed: Laboratory Last Values Urine pH (Auto) 7.5 06/03/24 15: Specific [place] (Auto) 1.015 06/03/24 15:23 Urine Protein (Auto) 0 mg/dL 06/03/24 15:23 Glucose (UA)(Auto) 0 mg/dL 06/03/24 15:23 Urine Ketones (Auto) Negative 06/03/24 15:23 Urine Blood (Auto) 0 Joe/uL 06/03/24 15:23 Urine Nitrite (Auto) Negative 06/03/24 15:23 Urine Bilirubin (Auto) 0 mg/dL 06/03/24 15:23 Urine Urobilinogen (Auto) 0.2 mg/dL 06/03/24 15:23 Leukocyte Esterase (Auto) 0 Michael/uL 06/03/24 15:23 Assessment & Plan Assessment & Plan (1) Overactive bladder: Code(s): N32.81 - Overactive bladder Category: Medical (2) Sterilization consult: Code(s): Z30.09 - Encounter for other general counseling and advice on contraception Category: Medical (3) Anxiety about health: Code(s): R45.89 - Other symptoms and signs involving emotional state Category: Medical Plan In office urinalysis results reviewed with the patient today; as noted above. Discussed risks and benefits of vasectomy; as noted above. All questions were answered. Consent obtained. Will obtain retroperitoneal ultrasound for patient has history of overactive bladder although he feels symptoms are stable with tropsium at this time. He currently denies any bothersome urinary issues or concerns. He reports be happy with current voiding parameters. Discussed semen analysis with in office verses fellows kit; information provided Will schedule for vasectomy as discussed Follow-up per doctor's orders; or sooner with any issues, concerns, and or questions. Orders: Orders AMB Post Void Residual by ultrasound Today Z13.9 - Encounter for screening, unspecified AMB Urinalysis Automated Today Z13.9 - Encounter for screening, unspecified US retroperitoneal comp Today N32.81 - Overactive bladder Medications: New acetaminophen-codeine 300-30 mg 1 tab PO Q8H 3 days 9 tabs 0RF R45.89 - Other symptoms and signs involving emotional state diazepam Take medication after arrival at office 2 mg PO BID 1 day PRN 2 tabs 0RF anxiety R45.89 - Other symptoms and signs involving emotional state Patient Instructions: The patient had an opportunity to ask questions regarding the treatment plan. All questions were answered. Physical exam, labs, and imaging were discussed and reviewed in detail. As well as risks, benefits, and discussion of treatment choices. No major barriers to understanding were identified. The patient expressed understanding and agreement with the above treatment plan. The patient was made aware they should contact our office by phone for worsening of their current condition, the appearance of new symptoms, or with any questions or concerns. Compliance is encouraged with any medications and follow up testing that is ordered. It is a privilege to be allowed the opportunity to participate in? your urological care.? Again, if you have any questions or concerns If you have any questions or concerns please do not hesitate to contact me. The office is [phone]. This note is constructed using voice recognition software. While every effort has been made to ensure accuracy building superintendent errors may have been included. Yours sincerely, MONICA Joshua-ELDON Coding Level of Care Code New Pt Level 4 (74655) Diagnoses Overactive bladder N32.81 Sterilization consult Z30.09 Anxiety about health R45.89 CPT Codes Post Residual Void - PVR CPT Code: 36290-Gceb Void Residual by ultrasound ([id number])
== END 2024-06-03 15:32 | disposition home or self-care (01) ==
PROVIDERS: PCP Internal Medicine; Visit Provider Nurse Practitioner Family
DX: N32.81 Overactive bladder (principal); Z30.09 Encounter for other general counseling and advice on contraception; R45.89 Other symptoms and signs involving emotional state; Z13.9 Encounter for screening, unspecified
CPT/HCPCS: 99204

== ENCOUNTER 2024-06-17 15:58 | Outpatient (REF) | payer OTHER, SELFPAY ==
--- NOTE | ~2024-06-17 | US_ITS ---
EXAMINATION: US RETROPERITONEAL COMPLETE (RENAL) CLINICAL INFORMATION: Overactive bladder. COMPARISON: None available. TECHNIQUE: Real-time imaging of the kidneys and bladder. FINDINGS: RIGHT KIDNEY: 10.5 x 4.9 x 5.3 cm (SAG x AP x TRV). The kidney is normal in size, contour, and echogenicity. Renal cortical thickness is normal. No calculi or focal parenchymal lesions. No hydronephrosis. LEFT KIDNEY: 10.7 x 5.1 x 5.3 cm (SAG x AP x TRV). The kidney is normal in size, contour, and echogenicity. Renal cortical thickness is normal. No calculi or focal parenchymal lesions. No hydronephrosis. BLADDER: Well distended and normal. Bilateral ureteral jets are demonstrated. Prevoid bladder volume is 294.1 mL. Postvoid bladder volume is 17.4 mL. ADDITIONAL FINDINGS: Trabeculation of the urinary bladder wall slightly thickened measure up to 6 mm, nonspecific radiologic findings and could be due to its incomplete distention, cannot rule out cystitis or chronic outflow obstruction, neurogenic bladder. US/US retroperitoneal comp IMPRESSION: * No ultrasound evidence of renal obstruction or hydronephrosis. * Trabeculation of the urinary bladder wall slightly thickened measure up to 6 mm, nonspecific findings could be due to its incomplete distention cannot rule out cystitis or chronic outflow obstruction, neurogenic bladder. Electronically signed by: Patrice Mosley MD 07/30/2024 07:52 AM EST
== END 2024-06-17 15:59 | disposition home or self-care (01) ==
LOC: HO.US 15:58
PROVIDERS: PCP Internal Medicine; Visit Provider Nurse Practitioner Family
DX: N32.81 Overactive bladder (principal)
CPT/HCPCS: 76770

== ENCOUNTER 2024-07-08 14:47 | Outpatient (AMB) | payer OTHER, SELFPAY ==
--- NOTE | 2024-07-08 14:59 | A.OFFVIS_ITS ---
Intake Visit Reasons: vasectomy Intake Note: Patient is present for Vasectomy Executive Administrative Asst Required: No Accompanied by: Self / Same As Patient Allergies No Known Allergies Allergy (Verified 06/03/24 15:32) HPI Comments Details: Allan is a pleasant 38year-old male patient of Dr. Strong. He has a past medical history of vitamin-D deficiency, obesity, overactive bladder, anxiety, depression, and cutaneous T-cell lymphoma. He presents to the office today for - vasectomy procedure Vasectomy evaluation The patient presents for vasectomy procedure.? He is currently He has fathered -?4 children with 2 partners? The youngest child is -[id number] His partner is aware and permissive for a vasectomy Current form of control is condoms Current employment is [id number] dad The vasectomy may be complicated due to a history of ?no complicating issues [facility] Medical History Vitamin D deficiency Obesity (BMI 30-39.9) Overactive bladder History of cutaneous T-cell lymphoma Anxiety and depression Surgical History History of hand surgery (~04/12/22) History of repair of ACL Social History Housing: Other Patient Tobacco Use Status: Former Tobacco user e-Cigarette/Vaping Use: Never Used Current occupational status: employed 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 [employer] Cognitive needs: No Hearing needs: No Vision needs: No Review of Systems Const Denies chills and Denies fever(s) Card Reports no additional complaints and Denies syncope Resp Denies cough GI Denies abdominal pain and Denies heartburn Reports as per HPI and Denies change in libido Neuro Denies syncope Psych Denies change in libido Endo Denies change in libido Physical Exam Const General: cooperative, healthy appearing, comfortable and no acute distress Orientation/consciousness: patient oriented x3 HEENT Face and sinus: Yes normal facial exam Mouth: moist mucous membranes Neck Neck: Yes normal visual inspection, Yes full ROM and Yes trachea midline Chest Chest palpation & inspection: normal inspection of the chest Resp Effort & Inspection: normal respiratory effort, able to speak in complete sentences and no respiratory distress GI Inspection: Yes normal to inspection Back/Spine/Pelvis Cervical Spine: normal cervical lordosis Thoracic/Lumbar Spine: thoracic and lumbar spine normal to inspection Skin General skin exam: no rashes or lesions noted Neuro General: patient oriented x3, gait normal, tone normal and moves all extremities Extrem General: Yes normal to inspection and Yes capillary refill normal Office Procedures Vasectomy Details: Preoperative diagnosis: Anxiety regarding Postoperative diagnosis: Anxiety regarding unplanned Procedure: Bilateral vasectomy Informed consent had been completed. Preoperative and postoperative instructions were provided to the patient. The patient has transportation to home identified at the completion of the procedure. Anti-anxiolytic prescription medication had been taken after consent verification and all questions answered. Tylenol with Codeine pain medication was also provided. The penis was elevated using a rubber band that was attached to the patient's shirt. Both vasa were palpated through the skin using a 3 finger technique and t he penoscrotal junction was prepped with Betadine. After Betadine application the left vas was elevated using a 3 finger grasping technique. 1% lidocaine was used to create a subdermal bubble. Further anesthetic was then advanced using the 25-gauge needle along the vasa in a proximal fashion. Approximately 2 minutes were allowed to for local anesthetic uptake. Using the sharp spreading instrument the scrotal skin was spread longitudinally in line with the vasa until the subdermal layer had been divided. The vasa was then elevated from the scrotum using a ring clamp. Care was taken to elevate the superior portion of the vasa by rotating the ring clamp in a caudad direction. The battery powered cautery was used to divide the vasal sheath in a longitudinal direction on the exposed vasa and to strip the vasal sheath from the vasa. A 2nd narrower ring clamp was placed on the exposed vas and used to lift the vas from the vasal sheath. so it grasped the elevated vas. The cautery was used to divide vasal attachments and allow full exposure of a small loop of vasa. The sharp spreading instrument was then used to create a tunnel under the vasa and spread to allow the blood vessels of the vasa to retract from the vasa. A mosquito clamp was placed on the proximal portion of the vas. The battery- powered cautery was used to make a partial division in the proximal vas and then inserted in order to cauterize the proximal end of the vas. This was then cut and allowed to retract into the vasal sheath. The mosquito was then used to twist the vasa 180 degrees creating a fascial interposition. Using a 4-0 chromic suture the fascial interposition was sutured closed. The distal portion of the vas was then cut in order to obtain a segment of vasa. The vasa were allowed to retract back into the scrotum. A small snap was then used to approximate the skin edges and allow hemostasis without placement of a suture. A similar procedure was repeated on the right side. He tolerated the procedure well. Triple antibiotic was applied. A gauze was applied. An ice pack was applied to assist with minimizing swelling. Postoperative instructions were confirmed. He understands the need to continue to use control methods. A semen sample should be brought for inspection under the microscope in 10-12 weeks. CPT 23187 Vasectomy performed by: Wilfred Dorsey Informed consent given: Yes Informed consent signed: Yes Time out checklist: patient, procedure, site marked/identified, positioning of patient, supplies available, allergies confirmed and team agrees on procedure Preoperative sedation: Yes Anesthetic used: other Specimens: vas segments not sent to pathology [id number] - Vasectomy Assessment & Plan Assessment & Plan (1) Anxiety about health: Code(s): R45.89 - Other symptoms and signs involving emotional state Category: Medical Plan Twelve week follow-up sperm analysis Patient Instructions: Imaging studies, laboratory and physical exam results were discussed and reviewed in detail. No major barriers to patient understanding were identified. An opportunity to ask questions regarding the treatment plan was provided. All questions were answered. The patient expressed understanding and agreement with the above treatment plan. The patient is aware they should contact our office by phone for worsening of their current condition or the appearance of new urologic symptoms. Compliance is encouraged with any medications and followup testing that is ordered. It is a privilege to participate in the urologic care of your patient. If you momin ve any questions or concerns regarding treatment for the above conditions, or other urologic issues, please do not hesitate to contact me. The office telephone contact is [phone]. This note is constructed using voice recognition software. While every effort has been made to ensure accuracy gambling broker errors may have been included. Yours sincerely, Dr Wilfred Dorsey MD, [facility] - Urology Providers of Expert, Compassionate Care for the Genitourinary System Coding Level of Care Code Procedure Only Diagnoses Anxiety about health R45.89 CPT Codes Office Procedure - CPT: 34174 - Vasectomy ([id number])
== END 2024-07-08 15:51 | disposition home or self-care (01) ==
PROVIDERS: PCP Internal Medicine; Visit Provider Urology
DX: Z30.2 Encounter for sterilization (principal)
CPT/HCPCS: 55250

== ENCOUNTER → 2024-07-08 14:47 | Outpatient (BNVA) | payer OTHER, SELFPAY | PROVIDERS: PCP Internal Medicine; Visit Provider Urology | DX: Z30.2 Encounter for sterilization (principal); R45.89 Other symptoms and signs involving emotional state | CPT/HCPCS: 55250; J2003 ==

== ENCOUNTER → 2024-07-30 10:55 | Outpatient (BNV) | payer OTHER, SELFPAY | PROVIDERS: PCP Internal Medicine; Referring Provider Internal Medicine; Visit Provider Internal Medicine Medical Oncology | DX: D64.9 Anemia, unspecified (principal) | CPT/HCPCS: 99214 ==

== ENCOUNTER 2024-12-22 14:43 | Outpatient (AMB) | payer OTHER, SELFPAY ==
[2024-12-22 14:45] VITALS: BP 130/86; PULSE 78; O2SAT 97; BMI 43.4
--- NOTE | 2024-12-22 14:45 | A.OFFPC_ITS ---
Vital Signs 12/22/24 14:45 Height 5 ft 11 in Weight 311 lb 8 oz BMI 43.4 BP 130/86 Blood Pressure Location Lt brachial Position Sitting Pulse 78 Pulse Source Pulse Oximeter Pulse Oximetry (%) 97 Oxygen Delivery Method Room Air Intake Visit Reasons: 6 month f/u Director Radio Required: No Accompanied by: Self / Same As Patient Allergies No Known Allergies Allergy (Verified 12/22/24 16:32) Medication List - Last Reconciled 12/22/24 by Dayo Strong MD alfuzosin ER 10 mg PO .nightly 30 days aripiprazole 10 mg PO QAM buspirone 20 mg PO TID clonidine HCl 0.1 mg PO .FOUR TIME A DAY naproxen 500 mg PO BID PRN 30 days oxcarbazepine 600 mg PO BID 30 days Tobacco use date assessed: 12/22/24 Dental Screening Dental Screen Date: 12/22/24 Did you have a dental visit in the last 12 months?: No Did you have a dental problem in the last 6 months where you did not have access to dental care?: No Was dental information given to patient?: No HPI 6 month f/u HPI Details Patient comes in today for his follow up visit States that he feels okay He denies any headaches or dizziness Denies any chest pains, no SOB No nausea/vomiting, no abdominal pain No change in bowel habits noted He had his follow up labs done a few months ago in September 2024 - to discuss his results [facility] Medical History (Updated 12/27/24 @ 23:28 by Dayo Strong MD) Bipolar disorder with depression Anxiety Vitamin D deficiency Obesity (BMI 30-39.9) Overactive bladder History of cutaneous T-cell lymphoma Anxiety and depression Surgical History History of hand surgery (~04/12/22) History of repair of ACL Family History Sister Breast cancer Father Liver cancer Social History Household Members: Spouse and Children Housing: Other Patient Tobacco Use Status: Former Tobacco user e-Cigarette/Vaping Use: Never Used Substance Use Type: Marijuana service: No Current occupational status: employed 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 1. Little interest or pleasure in doing things: nearly every day 2. Feeling down, depressed, or hopeless: nearly every day 3. Trouble falling or staying asleep, or sleeping too much: more than half the days 4. Feeling tired or having little energy: more than half the days 5. Poor appetite or overeating: nearly every day 6. Feeling bad about yourself - or that you are a failure or have let yourself or your family down: nearly every day 7. Trouble concentrating on things, such as reading the newspaper or watching television: nearly every day 8. Moving or speaking so slowly that other people could have noticed. Or the opposite - being so fidgety or restless that you have been moving around a lot more than usual: nearly every day 9. Thoughts that you would be better off or of hurting yourself in some way: more than half the days Total score: 24 Depression Screening Interpretation: Positive Depression Screening Follow-up: Existing condition and In treatment Depression Screening Done: Yes 88096 - PHQ-9 Billing: Yes Source: Developed by Drs. Robert Whalen, Odilia Ang, Delmar Ray and colleagues, with an educational rakan from [employer]. Thrive Questionnaire Date Thrive assessed: 12/22/24 I am a: Patient What is your living situation today?: I have a steady place to live Within the past 12 months, did the food you bought not last and you didn't have the money to get more?: Never true Within the past 12 months, did you worry whether your food would run out before you got money to buy more?: Never true Do you have trouble paying for medicines?: No Do you have trouble getting transportation to medical appointments?: No Do you have trouble paying your heating and electricity bill?: No Do you have trouble taking care of your child, family member or friend?: No Do you have trouble with day-to-day activities such as bathing, preparing meals, shopping, managing finances, etc.?: No Are you currently unemployed and looking for a job?: No Are you interested in more education?: No Please select the resources that you would like help with: None Currently or been in a relationship where the following occur: No concerns reported THRIVE Score: 0 AUDIT C Alcohol Use Questionnaire (AUDIT-C) 1. How often do you have a drink containing alcohol?: Never 3. How often do you have six or more drinks on one occasion?: Never Total Score: 0 Score Reviewed/Action Taken: Yes EMILE-7 AMB Questionnaire EMILE-7 Date EMILE - 7 assessed: 12/22/24 Feeling nervous, anxious, or on edge: 3 = Nearly every day Not being able to stop or control worryin = Nearly every day Worrying too much about different things: 2 = More than half the days Trouble relaxin = Nearly every day Being so restless that it is hard to sit still: 2 = More than half the days Becoming easily annoyed or irritable: 3 = Nearly every day Feeling afraid as if something awful might happen: 3 = Nearly every day Total EMILE-7 score (0-4 normal; 5-9 mild; 10-14 moderate; 15-21 severe): 19 Source: Developed by Drs. Robert Whalen, Odilia Ang, Delmar Ray and colleagues, with an educational rakan from [employer]. EMILE-7 Assessment Billing EMILE-7 Assessment Tool: EMILE-7 Assessment 27771 Review of Systems Const Denies chills, Denies fatigue, Denies fever(s) and Denies headache(s) ENT Denies dysphagia, Denies dizziness, Denies otalgia, Denies headache(s), Denies neck pain, Denies odynophagia and Denies sore throat Card Denies chest pain, Denies irregular heart rhythm, Denies palpitations and Denies dyspnea Resp Denies chest congestion, Denies cough and Denies dyspnea GI Denies abdominal pain, Denies constipation, Denies dysphagia, Denies heartburn, Denies diarrhea, Denies nausea, Denies odynophagia and Denies vomiting Denies difficulty urinating, Denies dysuria, Reports urinary frequency and Denies urinary urgency Musc Denies back pain, Denies arthralgias and Denies neck pain Skin/Breast Denies rash Neuro Denies dizziness, Denies headache(s) and Denies paresthesias Psych Reports anxiety (controlled) and Reports depression (controlled on current Rx) Endo Denies fatigue and Denies palpitations Physical exam (Primary Care) Vital Signs: Last Vital Signs Pulse 78 12/22/24 14:45 BP 130/86 12/22/24 14:45 Pulse Ox 97 12/22/24 14:45 Oxygen Delivery Method Room Air 12/22/24 14:45 BMI result Body Mass Index 43.4 Tobacco/Smoking Status: Tobacco use Status Tobacco use date assessed 12/22/24 12/22/24 14:53 Patient Tobacco Use Status Former Tobacco user 12/22/24 14:53 e-Cigarette/Vaping Use Never Used 12/22/24 14:53 PHQ-9: PHQ-9 Score PHQ-9: Total score 24 12/22/24 15:27 Depression Screening Interpretation: Positive Depression Screening Follow-up: Existing condition and In treatment Thrive Assessment: Date of Thrive Assessment Date Thrive assessed 12/22/24 12/22/24 14:53 Currently or been in a relationship where the following occur: No concerns reported Const General: no acute distress and alert HENMT Ears: TM's normal bilaterally and EAC's normal Throat: Yes posterior oropharynx normal and Yes tonsils normal (no TP congestion) Neck Neck: Yes no lymphadenopathy and Yes supple Thyroid: Thyroid normal Resp Auscultation: clear to auscultation bilaterally, no rales and no wheezes Cardio Rate: regular rate Rhythm: regular rhythm Heart sounds: no murmurs GI Palpation (GI): Soft to palpation and nontender Auscultation: normal bowel sounds General: Yes no CVA tenderness Back/Spine/Pelvis Back: no CVA tenderness Thoracic/Lumbar Spine: No lumbar spinal tenderness Skin Rashes: no rashes Extrem General: Yes no clubbing, cyanosis or edema Results Reviewed Results Reviewed: Laboratory Tests 06/03/24 06/03/24 06/03/24 08:15 08:57 15:23 WBC Hgb Hct Plt Count Sodium Potassium Creatinine Estimated GFR Random Glucose Fasting Glucose 85 Calcium AST ALT Triglycerides 51 Cholesterol 138 LDL Cholesterol, Calc 86 HDL Cholesterol 42 Vitamin B12 25-OH Vitamin D Total 42.3 TSH 1.09 Ur Specific [place] 1.020 Urine Protein Negative Urine Glucose (UA) Negative Urine Blood Negative Urine Nitrite (Auto) Negative Ur Leukocyte Esterase Negative IgG Total IgA Total IgM 07/30/24 10/09/24 11:26 10:42 WBC 7.6 Hgb 13.7 L Hct 41.8 L Plt Count 244 Sodium 143 Potassium 4.4 Creatinine 1.08 Estimated GFR > 60 Random Glucose 91 Fasting Glucose Calcium 9.4 AST 23 ALT 28 Triglycerides Cholesterol LDL Cholesterol, Calc HDL Cholesterol Vitamin B12 665 25-OH Vitamin D Total TSH Ur Specific [place] Urine Protein Urine Glucose (UA) Urine Blood Urine Nitrite (Auto) Ur Leukocyte Esterase IgG Total 1246 IgA Total 358 H IgM 107 Coding Level of Care Code Est Pt Level 4 (88593) Diagnoses History of cutaneous T-cell lymphoma Z85.72 Elevated blood pressure reading R03.0 Vitamin D deficiency E55.9 Overactive bladder N32.81 Anxiety F41.9 Bipolar disorder with depression F31.9 Obesity (BMI 30-39.9) E66.9 Additional Codes EMILE-7 Assessment Billing - EMILE-7 Assessment Tool: EMILE-7 Assessment 59304 ([id number]) PHQ-9 - 51493 - PHQ-9 Billing: Yes ([id number]) Assessment & Plan Assessment & Plan (1) History of cutaneous T-cell lymphoma: Code(s): Z85.72 - Personal history of non-Hodgkin lymphomas Category: Medical Plan: Patient was reportedly diagnosed with cutaneous T-cell lymphoma about 10 years ago and treated with topical steroids He was following up with oncology at [facility] in [place] regularly in the past but he has not been seen in over 3 years and requested to follow up with specialists locally He was referred to and is now following up with oncology here at [facility] (Dr. Hunter) regularly (2) Elevated blood pressure reading: Code(s): R03.0 - Elevated blood-pressure reading, without diagnosis of hypertension Category: Medical Plan: His blood pressure appears to be better controlled at his office visit today Reinforced low sodium diet Patient is advised to monitor his blood pressure regularly (3) Vitamin D deficiency: Code(s): E55.9 - Vitamin D deficiency, unspecified Category: Medical Plan: Corrected (4) Overactive bladder: Code(s): N32.81 - Overactive bladder Category: Medical Plan: Continue Alfusozin ER 10 mg QD Follow up with urology as scheduled (5) Anxiety: Code(s): F41.9 - Anxiety disorder, unspecified Category: Medical Plan: Continue Buspirone 20 mg TID and Clonidine 0.1 mg QID (6) Bipolar disorder with depression: Code(s): F31.9 - Bipolar disorder, unspecified Category: Medical Plan: Continue Oxcarbazepine 600 mg BID and Aripiprazole 10 mg Q AM Follow up with psychiatry as scheduled (7) Obesity (BMI 30-39.9): Code(s): E66.9 - Obesity, unspecified Category: Medical Plan: Reinforced diet/exercise as tolerated/lose weight Plan To return as scheduled in April 2025 for his next annual physical examination Orders: Orders Complete Blood Count Auto Diff 04/04/25 D64.9 - Anemia, unspecified, Z00.00 - Encounter for general adult medical examination without abnormal findings Comprehensive [place]. Panel Fast 04/04/25 E78.00 - Pure hypercholesterolemia, unspecified, Z00.00 - Encounter for general adult medical examination without abnormal findings TSH reflex Free T4 04/04/25 E78.00 - Pure hypercholesterolemia, unspecified, Z00.00 - Encounter for general adult medical examination without abnormal findings Vitamin D 25-OH Total 04/04/25 E55.9 - Vitamin D deficiency, unspecified, Z00.00 - Encounter for general adult medical examination without abnormal findings Lipid Panel 04/04/25 E78.00 - Pure hypercholesterolemia, unspecified, Z00.00 - Encounter for general adult medical examination without abnormal findings UA CC w/rflx Micro + Cult 04/04/25 R30.0 - Dysuria, Z00.00 - Encounter for general adult medical examination without abnormal findings
--- OUTSIDE RECORDS SUMMARY | 2024-12-22 17:49 | XMS_ITS | Clinical Summary ---
Author Organization [facility] ity Address [address] [place] [address] Care Team Providers Care Special Ed Assistant Name Role Phone Edward Lao MD Primary Care Provider Allergies No known active allergies Medications buPROPion SR (WELLBUTRIN SR) 100 mg 12 hr tablet TAKE 1 TABLET BY MOUTH TWICE DAILY 3 Active GENERIC EXTERNAL MEDICATION Take 1 tablet by mouth at bedtime. 5mg melatonin and 5mg THC from dispensary Active magnesium oxide 500 mg magnesium tablet Take 1 tablet by mouth daily. Active naproxen (NAPROSYN) 500 mg tablet TAKE 1 TABLET BY MOUTH TWICE DAILY NEEDED FOR PAIN 1 Active sertraline (ZOLOFT) 100 mg tablet Take 0.5 Tablets by mouth daily. 2 Active cholecalciferol (VITAMIN D-3) 25 mcg (1,000 unit) tablet Take 1 Tablet by mouth daily. 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 10/20/2019 Overview (09/21/2024): 2012,Mycosis Fungoides Stage I B, current remisssion, txd w/ topical cream, prev tx'd [facility], has not been seen in f/u for yrs after clinician [place] [facility] Vitamin D deficiency 10/20/2019 Anxiety 09/15/2019 Immunizations Name Administration Dates Next Due Influenza Quadravalent, MDCK , 0.5ml, preservative free (Flucelvax) 6mo and older 07/07/2021 Influenza trivalent, with preservative (Fluzone; Afluria) 6mo and older 11/30/2015,05/22/2012,09/21/2011,2009 Tdap Tetanus diptheria acell ular pertussis (Boostrix; Adacel) 7yo and older 07/07/2021 Surgical History Surgery Date Site/Laterality Comments OTHER SURGICAL HISTORY 2018 Left PROCEDURE: [place] [facility] AIDED ANT CRUCIATE LIGM RPR/AGMNTJ/RCNSTJ; COMMENT: ACL repair Medical History Medical History Date Comments Anxiety 09/15/2019 DX:Anxiety Insomnia 10/20/2019 DX:Insomnia Major depressive disorder, r ecurrent, moderate (CMS/HCC) 10/20/2019 DX:Major depressive disorder , recurrent, moderate (HCC); COMMENT: Chronic, not in treatment for years, symptomatic with passive SI only Morbid obesity with BMI of 4 0.0-44.9, adult (CMS/HCC) 10/20/2019 DX:Morbid obesity with BMI o f 40.0-44.9, adult (HCC) JENNIFFER (obstructive sleep apnea) 10/20/2019 DX :JENNIFFER (obstructive sleep apnea); COMMENT: No mention of treatment in transfer record Vitamin D deficiency 10/20/2019 DX:Vitamin D deficiency High risk sexual behavior 10/20/2019 DX:Hig h risk sexual behavior; COMMENT: Multiple partners, h/o epididymitis 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 arrhythmia Liver cancer Father age 57 Diabetes Mother CVA,Hypertensio n, Atrial Fibrillation, Depression Breast cancer Mother's side Aunts x2 Hypertension Sister Stroke Uncle Relation Name Status Comments Aunt Brother Father Mother Alive Mother's side Sister Uncle Social History Tobacco Use Types Packs/Day Years Used Date Smoking Tobacco: Some Days Smokeless Tobacco: Never Alcohol Use Standard Drinks/Week Comments Yes 3 (1 standard drink = 0.6 oz pur e alcohol) Sex and Gender Information Value Date Recorded Sex Assigned at Not on file Legal Sex Male 8:12 AM EST Gender Identity Not on file Sexual Orientation Not on file Obstetrics History Last Filed Vital Signs Vital Sign Reading Time Taken Comments Blood Pressure 126/78 04/10/2022 2:58 PM EDT Pulse 58 04/10/2022 2:58 PM EDT Temperature - - Respiratory Rate - - Oxygen Saturation - - Inhaled Oxygen Concentration - - Weight 134 kg (295 lb) 04/10/2022 2:58 PM EDT Height 180.3 cm (5' 11 ) 04/10/2022 2:58 PM EDT Body Mass Index 41.14 04/10/2022 2:58 PM EDT Plan of Treatment Health Maintenance Due Date Last Done Comments Hepatitis B Vaccines (1 of 3 - 19+ 3-dose series) 2005 Pneumococcal Vaccine: Pediatrics (0 to 5 Years) and At-Risk Patients (6 to 64 Years) (1 of 2 - PCV) 2005 COVID-19 Vaccine (3 - Moderna risk series) 12/14/2020 11/16/2020, 10/19/2020 Depression Screening 08/19/2022 Social Influencers of Health Screening 08/19/2022 Influenza Vaccine (#1) 2024 , 11/30/2015, 05/22/2012, Additional history exists Cholesterol Screening (Lipid Panel) 07/07/2026 07/07/2021 DTaP,Tdap,and Td Vaccines (2 - Td or Tdap) 07/07/2031 07/07/2021 HIV Screening Completed 03/14/2022 Hepatitis C Screening Completed 03/14/2022 HIB Vaccines Aged Out No longer eligi ble based on patient's age to complete this topic HPV Vaccines Aged Out No longer eligi ble based on patient's age to complete this topic Hepatitis A Vaccines Aged Out No long er eligible based on patient's age to complete this topic IPV Vaccines Aged Out No longer eligi ble based on patient's age to complete this topic MMR Vaccines Aged Out No longer eligi ble based on patient's age to complete this topic Meningococcal ACWY Vaccine Aged Out N o longer eligible based on patient's age to complete this topic Meningococcal B Vaccine Aged Out No l onger eligible based on patient's age to complete this topic RSV Immunization Patients Under 20 months Aged Out No longer eligible based on patient's age to complete this topic Varicella Vaccines Aged Out No longer eligible based on patient's age to complete this topic Procedures Procedure Name Priority Date/Time Associated Diagnosis Comments HEPATITIS C SCREENING Routine 03/14/2022 HIV SCREENING Routine 03/14/2022 LIPID PANEL Routine 07/07/2021 from Last 3 Months or Most Recently Relevant to Health Maintenance Results * HIV Screening (03/14/2022) HIV Screening Abstracted Historical Provider HEALTH MAINTENANCE Final Result * Hepatitis C Screening (03/14/2022) Pathologist [facility] Hepatitis C Screening Abstracted Historical Provider HEALTH MAINTENANCE Final Result * Lipid panel (07/07/2021) LDL/HDL Ratio 3 0 - 4 Triglycerides 83 0 - 150 mg/dL Cholesterol 167 0 - 200 mg/dL HDL 60 >=40 mg/dL LDL Cholesterol 91 0 - 100 mg/dL Blood Venous blood specimen / Unknown Historical Provider LAB BLOOD ORDERABLES Naina l Result from Last 3 Months or Most Recently Relevant to Health Maintenance Care Teams Special Ed Assistant Relationship Specialty Start Date End Date Edward Lao MD [address] [place] [address] PCP - General Internal Medicine 02/09/22
== END 2024-12-22 15:35 | disposition home or self-care (01) ==
LOC: HO.HMCH 14:44
PROVIDERS: PCP Internal Medicine; Visit Provider Internal Medicine
DX: R03.0 Elevated blood-pressure reading, without diagnosis of hypertension (principal); F31.9 Bipolar disorder, unspecified; Z68.41 Body mass index [BMI] 40.0-44.9, adult; E66.9 Obesity, unspecified; Z85.72 Personal history of non-Hodgkin lymphomas; E55.9 Vitamin D deficiency, unspecified; N32.81 Overactive bladder; F41.9 Anxiety disorder, unspecified

== ENCOUNTER → 2024-12-22 14:43 | Outpatient (BNVA) | payer OTHER, SELFPAY | PROVIDERS: PCP Internal Medicine; Visit Provider Internal Medicine | DX: N32.81 Overactive bladder (principal); N32.89 Other specified disorders of bladder; R03.0 Elevated blood-pressure reading, without diagnosis of hypertension; E55.9 Vitamin D deficiency, unspecified; F41.9 Anxiety disorder, unspecified; F31.9 Bipolar disorder, unspecified; E66.9 Obesity, unspecified; Z85.72 Personal history of non-Hodgkin lymphomas | CPT/HCPCS: 96127; 99212 ==

== ENCOUNTER 2024-12-22 15:50 | Outpatient (AMB) | payer OTHER, SELFPAY ==
--- NOTE | 2024-12-22 15:50 | A.OFFVIS_ITS ---
Intake Visit Reasons: US follow up(set) Intake Note: Patient presents today for tele visit follow up for ultrasound results Imaging Completed: 06/17/24 Urology Medications: Alfuzosin Blood Thinner: none Anesthesiologist And Critical Care Required: No Accompanied by: Self / Same As Patient Allergies No Known Allergies Allergy (Verified 12/22/24 16:32) Medication List - Last Reconciled 12/22/24 by ELANA Joshua alfuzosin ER 10 mg PO .nightly 30 days aripiprazole 10 mg PO QAM buspirone 20 mg PO TID clonidine HCl 0.1 mg PO .FOUR TIME A DAY naproxen 500 mg PO BID PRN 30 days oxcarbazepine 600 mg PO BID 30 days HPI Comments Details: Allan is a very pleasant 39-year-old male patient of Dr. Strong. He has a past medical history of vitamin-D deficiency, obesity, overactive bladder, anxiety, depression, and cutaneous T-cell lymphoma. He is being followed up on today via video telehealth for his ongoing lower urinary tract symptoms. Of note, patient was seen approximately 6 months ago for vasectomy consultation however had also been reporting lower urinary tract symptoms at which time a retroperitoneal ultrasound was ordered for further assessment evaluation and the patient was started on alfuzosin 10 mg at bedtime. In discussion with the patient today he reports initially upon start of alfuzosin he did feel improvement in nocturia as well as symptoms of urinary urgency and frequency he had been experiencing however feels medication has not been helpful as of recent. Recent retroperitoneal ultrasound results were reviewed 07/09 bilateral kidneys with no calculi, lesions, and or hydronephrosis. The bladder is well distended and normal pre void bladder volume was approximately 300 mL. Postvoid bladder volume is approximately 20 mL. Trabeculation of the urinary bladder wall measuring up to 6 mm. We discussed potential causes of lower urinary tract symptoms patient was experiencing as well as further treatment options and risks and benefits of these treatment options. He will continue with alfuzosin at this time. Will arrange for in office cystoscopy for further assessment evaluation. He denies dysuria, foul smelling urine, changes to urinary stream, flank pain, fever, and or chills. He discusses having had no issues s/p vasectomy. He otherwise denies any other issues or concerns at this time. 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 [employer] Cognitive needs: No Hearing needs: No Vision needs: No Review of Systems Const All systems reviewed & are unremarkable except as noted in HPI and below Physical Exam Const General: cooperative Orientation/consciousness: patient oriented x3 Resp Effort & Inspection: normal respiratory effort and able to speak in complete sentences Neuro General: patient oriented x3 Psych Appearance: grossly normal and well kempt Mental Status: mental status grossly normal Speech and movement: Clear speech present Affect: normal affect Attitude: cooperative Thought process: Normal thought process present Thought content: Normal thought content present Insight: Fair insight present (Psych) Judgement: Fair judgement present (Psych) Telehealth Telehealth Telehealth Platform: [facility] [place] Location of provider rendering services: practice address Location of patient: address on file Patient Identification confirmed using: Name, : Yes Telehealth method: video Patient verbally consented to treatment: Yes Patient verbally consented to billing insurance company: Yes Patient informed of any privacy concerns related to visit: Yes Minutes spent on Phone/Video with Pt.: 15 Results Reviewed Results Reviewed: Date of Service: 06/17/24 Procedure(s): US retroperitoneal comp FINDINGS: RIGHT KIDNEY: 10.5 x 4.9 x 5.3 cm (SAG x AP x TRV). The kidney is normal in size, contour, and echogenicity. Renal cortical thickness is normal. No calculi or focal parenchymal lesions. No hydronephrosis. LEFT KIDNEY: 10.7 x 5.1 x 5.3 cm (SAG x AP x TRV). The kidney is normal in size, contour, and echogenicity. Renal cortical thickness is normal. No calculi or focal parenchymal lesions. No hydronephrosis. BLADDER: Well distended and normal. Bilateral ureteral jets are demonstrated. Prevoid bladder volume is 294.1 mL. Postvoid bladder volume is 17.4 mL. ADDITIONAL FINDINGS: Trabeculation of the urinary bladder wall slightly thickened measure up to 6 mm, nonspecific radiologic findings and could be due to its incomplete distention, cannot rule out cystitis or chronic outflow obstruction, neurogenic bladder. IMPRESSION: * No ultrasound evidence of renal obstruction or hydronephrosis. * Trabeculation of the urinary bladder wall slightly thickened measure up to 6 mm, nonspecific findings could be due to its incomplete distention cannot rule out cystitis or chronic outflow obstruction, neurogenic bladder. Assessment & Plan Assessment & Plan (1) Overactive bladder: Code(s): N32.81 - Overactive bladder Category: Medical (2) Bladder wall thickening: Code(s): N32.89 - Other specified disorders of bladder Category: Medical Plan Recent retroperitoneal ultrasound results reviewed with the patient today; as noted above. We discussed at length potential causes for lower urinary tract symptoms patient was experiencing as well as further treatment options and risks and benefits of these treatment options. We discussed bladder triggers/irritants. Continue alfuzosin. Will schedule for in office cystoscopy for further assessment evaluation. Follow-up per doctor's orders; or sooner with any issues, concerns, and or questions. Patient Instructions: The patient had an opportunity to ask questions regarding the treatment plan. All questions were answered. Physical exam, labs, and imaging were discussed and reviewed in detail. As well as risks, benefits, and discussion of treatment choices. No major barriers to understanding were identified. The patient expr essed understanding and agreement with the above treatment plan. The patient was made aware they should contact our office by phone for worsening of their current condition, the appearance of new symptoms, or with any questions or concerns. Compliance is encouraged with any medications and follow up testing that is ordered. It is a privilege to be allowed the opportunity to participate in? your urological care.? Again, if you have any questions or concerns If you have any questions or concerns please do not hesitate to contact me. The office is [phone]. This note is constructed using voice recognition software. While every effort has been made to ensure accuracy head golf coach errors may have been included. Yours sincerely, ELANA Joshua Coding Level of Care Code Tele Est Pt Level 3 (37604) Diagnoses Overactive bladder N32.81 Bladder wall thickening N32.89
--- OUTSIDE RECORDS SUMMARY | 2024-12-22 18:46 | XMS_ITS | Clinical Summary ---
Author Organization [facility] ity Address [address] [place] [address] Care Team Providers Care Centerpuncher Name Role Phone Edward Lao MD Primary [...] in f/u for yrs after clinician left [facility] Vitamin D deficiency 10/20/2019 Anxiety 09/15/2019 Immunizations Name Administration Dates Next Due Influenza Quadravalent, MDCK , 0.5ml, preservative free (Flucelvax) 6mo and older 07/07/2021 Influenza trivalent, with preservative (Fluzone; Afluria) 6mo and older 11/30/2015,05/22/2012,09/21/2011,2009 Tdap Tetanus diptheria acell ular pertussis (Boostrix; Adacel) 7yo and older 07/07/2021 Surgical History Surgery Date Site/Laterality Comments OTHER SURGICAL HISTORY 2018 Left PROCEDURE: [place] AIDED ANT CRUCIATE LIGM RPR/AGMNTJ/RCNSTJ; COMMENT: [...] in f/u for yrs after clinician left [facility] Family History Medical History Relation Name Comments [...] Result * Hepatitis C Screening (03/14/2022) Pathologist [facility] Hepatitis C Screening Abstracted Historical Provider HEALTH [...] Recently Relevant to Health Maintenance Care Teams Centerpuncher Relationship Specialty Start Date End Date Edward Lao MD [address] [place] [address] PCP - General Internal Medicine 02/09/22
== END 2024-12-23 07:51 | disposition home or self-care (01) ==
PROVIDERS: PCP Internal Medicine; Visit Provider Nurse Practitioner Family
DX: N32.81 Overactive bladder (principal); N32.89 Other specified disorders of bladder
CPT/HCPCS: 99213

== ENCOUNTER 2025-02-11 09:50 | Outpatient (AMB) | payer OTHER, SELFPAY ==
--- NOTE | 2025-02-11 10:08 | A.OFFVIS_ITS ---
Intake Visit Reasons: Cysto Intake Note: Patient is present for Cystoscopy Urology Medication:ALFUZOSIN Antibiotic Allergy:NONE Blood Thinner:NONE Lot:[id number] Exp:01/22/27 Conduit Worker Required: No Allergies No Known Allergies Allergy (Verified 02/11/25 10:09) HPI Comments Details: Allan is a pleasant male. He is a patient of Dr. Strong. He seen for the following urologic conditions - lower urinary tract symptoms Here for cystoscopy Tight prostate Will continue with alfuzosin Six-month follow-up nurse-practitioner Lower urinary tract symptoms Trapped prostate Weakness of stream responded well to alfuzosin Imaging - ultrasound trabeculation of urinary wall PFSH Medical History (Updated 12/27/24 @ 23:28 by Dayo Strong MD) Bipolar disorder with depression Anxiety Vitamin D deficiency Obesity (BMI 30-39.9) Overactive bladder History of cutaneous T-cell lymphoma Anxiety and depression Surgical History History of hand surgery (~04/12/22) History of repair of ACL Family History Sister Breast cancer Father Liver cancer Social History Household Members: Spouse and Children Housing: Other Patient Tobacco Use Status: Former Tobacco user e-Cigarette/Vaping Use: Never Used Substance Use Type: Marijuana service: No Current occupational status: employed 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 Cognitive needs: No Hearing needs: No Vision needs: No Review of Systems Const Denies chills and Denies fever(s) Card Reports no additional complaints and Denies syncope Resp Denies cough GI Denies abdominal pain and Denies heartburn Reports as per HPI and Denies change in libido Neuro Denies syncope Psych Denies change in libido Endo Denies change in libido Physical Exam Const General: cooperative, healthy appearing, comfortable and no acute distress Orientation/consciousness: patient oriented x3 HEENT Face and sinus: Yes normal facial exam Mouth: moist mucous membranes Neck Neck: Yes normal visual inspection, Yes full ROM and Yes trachea midline Chest Chest palpation & inspection: normal inspection of the chest Resp Effort & Inspection: normal respiratory effort, able to speak in complete sentences and no respiratory distress GI Inspection: Yes normal to inspection Back/Spine/Pelvis Cervical Spine: normal cervical lordosis Thoracic/Lumbar Spine: thoracic and lumbar spine normal to inspection Skin General skin exam: no rashes or lesions noted Neuro General: patient oriented x3, gait normal, tone normal and moves all extremities Extrem General: Yes normal to inspection and Yes capillary refill normal Office Procedures Cystoscopy Consent Discussed risk and benefit or proposed procedure with the patient. Information consent for procedure given to the patient. Discussed technical aspects, risks, benefits and alternatives in full. Addressed all of the patient's questions and concerns regarding the procedure. The patient demonstrated knowledge and understanding. They wish to proceed with this procedure. Preparation The patient was prepped in the usual manner. A mining support worker was present and in the room. Genitalia was prepped with betadine solution in a sterile manner. Lidocaine Jelly 2% was placed into the urethra and 16Fr flexible Olympus cystoscope was inserted into the meatus after adequate lubrication. Procedure Cystoscopy performed using a disposable Urovue digital 16 Ukrainian cystoscope. Meatus circumcised Urethra anterior and posterior urethra normal Prostatic Urethra tight bladder neck Bladder examination with retroflexion of cystoscope Bladder Orifices normal shape and position Bladder Capacity Normal Trabeculations grade 1/2 Cellule Formation None Diverticulum Formation None Mucosal Erythema None Bladder Tumor None 85159-[id number] DISPOSABLE SCOPE URO-G FLEXIBLE SCOPE Procedure code (CPT) selection complete Office Meds lidocaine HCl 2 % mucosal jelly in applicator Performing Provider: Wilfred Dorsey MD [facility] Administered by: Guzman Clemens LPN on 02/11/25 10:40 Dose Route Admin Location Dispensed Lot Number Expiration Date [facility] [place] Dental Practitioner 10 mL intra-urethral 10 mL nitrofurantoin monohydrate/macrocrystals 100 mg capsule Performing Provider: Wilfred Dorsey MD Performing Location: [facility] Administered by: Guzman Clemens LPN on 02/11/25 10:40 Dose Route Admin Location Dispensed Lot Number Expiration Date [place] Dental Practitioner 100 mg PO 1 cap Results AMB Urinalysis, Automated UA Leukoctes 0 Michael/uL Last Edit by SHIMON Boo on 02/11/25 16:02 UA Nitrite Negative Last Edit by SHIMON Boo on 02/11/25 16:02 UA Urobilinogen 3.5 mg/dL Last Edit by SHIMON Boo on 02/11/25 16:0 2 UA Protein 15 mg/dL Last Edit by SHIMON Boo on 02/11/25 16:02 UA pH 6.0 Last Edit by SHIMON Boo on 02/11/25 16:02 UA Blood 0 Joe/uL Last Edit by SHIMON Boo on 02/11/25 16:02 UA Specific [place] 1.025 Last Edit by Jovany Rick [facility] on 02/11/25 16: 02 UA Ketone Negative Last Edit by SHIMON Boo on 02/11/25 16:02 UA Bilirubin 0 mg/dL [facility] 02/11/[facility] 16:02 UA Glucose 0 mg/dL Last Edit [facility] on 02/11/25 16:02 Results Reviewed Results Reviewed: Laboratory Last Values Urine pH (Auto) 6.0 02/11/25 16:02 Specific [place] (Auto) 1.025 02/11/25 16:02 Urine Protein (Auto) 15 mg/dL 02/11/25 16:02 Glucose (UA)(Auto) 0 mg/dL 02/11/25 16:02 Urine Ketones (Auto) Negative 02/11/25 16:02 Urine Blood (Auto) 0 Joe/uL 02/11/25 16:02 Urine Nitrite (Auto) Negative 02/11/25 16:02 Urine Bilirubin (Auto) 0 mg/dL 02/11/25 16:02 Urine Urobilinogen (Auto) 3.5 mg/dL 02/11/25 16:02 Leukocyte Esterase (Auto) 0 Michael/uL 02/11/25 16:02 Assessment & Plan Assessment & Plan (1) Overactive bladder: Code(s): N32.81 - Overactive bladder Category: Medical (2) Bladder wall thickening: Code(s): N32.89 - Other specified disorders of bladder Category: Medical Plan Six-month follow-up Orders: Orders AMB Cystoscopy Today N32.81 - Overactive bladder, N32.89 - Other specified disorders of bladder AMB Urinalysis Automated Today Z13.9 - Encounter for screening, unspecified Medications: Changed From alfuzosin ER Take before bedtime 10 mg PO .nightly 30 days 30 tabs 3RF N32.0 - Bladder- neck obstruction, N40.1 - Benign prostatic hyperplasia with lower urinary tract symptoms, R33.9 - Retention of urine, unspecified, R35.1 - Nocturia To alfuzosin ER Take before bedtime 10 mg PO BEDTIME 90 tabs 1RF 90 days N32.0 - Bladder-neck obstruction, N40.1 - Benign prostatic hyperplasia with lower urinary tract symptoms, R33.9 - Retention of urine, unspecified, R35.1 - Nocturia Patient Instructions: This note is constructed using voice recognition software. While every effort has been made to ensure accuracy mechanical facilities technician errors may have been included. Imaging studies, laboratory and physical exam results were discussed and reviewed in detail. No major barriers to patient understanding were identified. An opportunity to ask questions regarding the treatment plan was provided. All questions were answered. The patient expressed understanding and agreement with the above treatment plan. The patient is aware they should contact our office by phone for worsening of their current condition or the appearance of new urologic symptoms. Compliance is encouraged with any medications and followup testing that is ordered. It is a privilege to participate in the urologic care of your patient. If you have any questions or concerns regarding treatment for the above conditions, or other urologic issues, please do not hesitate to contact me. The office tel ephone contact is [phone]. Sincerely, Dr Wilfred Dorsey MD, [facility] - Urology Compassionate Specialist Care for the Genitourinary System Coding Level of Care Code Est Pt Level 3 (03481) Diagnoses Overactive bladder N32.81 Bladder wall thickening N32.89 CPT Codes Cystoscopy - CPT: 94207-[id number] ([id number])
--- OUTSIDE RECORDS SUMMARY | 2025-02-11 10:13 | XMS_ITS | Clinical Summary ---
Author Organization [facility] it Address [address] [place] [address] Care Team Providers Care Cardroom Drawing Runner Name Role Phone Edward Lao MD Primary [...] Diagnosed Date Morbid obesity with BMI of 4 0.0-44.9, adult ([facility] V24, [facility] V28) 09/21/2024 Insomnia 10/20/2019 Major depressive disorder, r ecurrent, moderate ([facility] V24, [facility] V28) 10/20/2019 Overview (09/21/2024): Chronic, not in treatment for years, symptomatic with passive Suicidal Ideation only JENNIFFER (obstructive sleep apnea) 10/20/2019 Overview (09/21/2024): No mention of treatment in transfer record 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 ([facility] V24, [facility] V28) 10/20/2019 Overview (09/21/2024): 2012,Mycosis Fungoides Stage I B, current remisssion, txd w/ topical cream, prev tx'd [facility], has not been seen in f/u for yrs after clinician left [facility] Vitamin D deficiency 10/20/2019 Anxiety 09/15/2019 Immunizations Name Administration Dates Next Due Influenza Quadravalent, MDCK , 0.5ml, preservative free (Flucelvax) 6mo and older 07/07/2021 Influenza trivalent, with preservative (Fluzone; Afluria) 6mo and older 11/30/2015,05/22/2012,09/21/2011,2009 Tdap Tetanus diptheria acell ular pertussis (Boostrix; Adacel) 7yo and older 07/07/2021 Surgical History Surgery Date Site/Laterality Comments OTHER SURGICAL HISTORY 2018 Left PROCEDURE: [place] ARTH[place] AIDED ANT CRUCIATE LIGM RPR/AGMNTJ/RCNSTJ; COMMENT: ACL repair Medical History Medical History Date Comments Anxiety 09/15/2019 DX:Anxiety Insomnia 10/20/2019 DX:Insomnia Major depressive disorder, r ecurrent, moderate ([facility] V24, [facility] V28) 10/20/2019 DX:Major depressiv e disorder, recurrent, moderate ([facility]); COMMENT: Chronic, not in treatment for years, symptomatic with passive SI only Morbid obesity with BMI of 4 0.0-44.9, adult ([facility] V24, [facility] V28) 10/20/2019 DX:Morbid obesity wit h BMI of 40.0-44.9, adult ([facility]) JENNIFFER (obstructive sleep apnea) 10/20/2019 DX :JENNIFFER (obstructive sleep apnea); COMMENT: No mention of treatment in transfer record Vitamin D deficiency 10/20/2019 DX:Vitamin D deficiency High risk sexual behavior 10/20/2019 DX:Hig h risk sexual behavior; COMMENT: Multiple partners, h/o epididymitis 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 ([facility] V24, [facility] V28) 10/20/2019 DX:Pleomorphic small or med ium-sized cell cutaneous T-cell lymphoma (HCC); COMMENT: 2011,Mycosis Fungoides Stage I B, current remisssion, txd w/ topical cream, prev tx'd [facility], has not been seen in f/u for yrs after clinician left [facility] Family History Medical History Relation Name Comments [...] Influencers of Health Screening 08/19/2022 Influenza Vaccine (Season Ended) 2025 07/07/2021, 11/30/2015, 05/22/2012, Additional history exists Cholesterol Screening [...] Health Maintenance Results * HIV Screening (03/14/2022) [facility] HIV Screening Abstracted [facility] Provider HEALTH MAINTENANCE Final Result * Hepatitis C Screening (03/14/2022) [facility] Hepatitis C Screening Abstracted [facility] Provider HEALTH MAINTENANCE Final Result * Lipid panel (07/07/2021) [facility] LDL/HDL Ratio 3 0 - 4 Triglycerides 83 0 - 150 mg/dL Cholesterol 167 0 - 200 mg/dL HDL 60 >=40 mg/dL LDL Cholesterol 91 0 - 100 mg/dL Blood Venous blood specimen / Unknown [facility] Provider LAB BLOOD ORDERABLES Naina l Result from Last 3 Months or Most Recently Relevant to Health Maintenance Care Teams Cardroom Drawing Runner Relationship Specialty Start Date End Date Edward Lao MD [address] [place] [address] PCP - General Internal Medicine 02/09/22
== END 2025-02-11 10:55 | disposition home or self-care (01) ==
LOC: HO.HUSH 09:51
PROVIDERS: PCP Internal Medicine; Visit Provider Urology
DX: N32.89 Other specified disorders of bladder (principal); N32.81 Overactive bladder; Z13.9 Encounter for screening, unspecified
CPT/HCPCS: 52000

== ENCOUNTER → 2025-02-11 09:50 | Outpatient (BNVA) | payer OTHER, SELFPAY | PROVIDERS: PCP Internal Medicine; Visit Provider Urology | DX: N40.1 Benign prostatic hyperplasia with lower urinary tract symptoms (principal); N42.89 Other specified disorders of prostate; N32.81 Overactive bladder; N32.89 Other specified disorders of bladder; N32.0 Bladder-neck obstruction; R33.8 Other retention of urine; R35.1 Nocturia | CPT/HCPCS: 52000; 81003 ==

== ENCOUNTER 2025-04-19 17:27 | Outpatient (AMB) | payer OTHER, SELFPAY ==
--- OUTSIDE RECORDS SUMMARY | 2025-04-19 17:30 | XMS_ITS | Clinical Summary ---
Author Organization [facility] it Address [address] [place] [address] Care Team Providers Care Haunted History Tour Guide Name Role Phone Edward Lao MD Primary Care Provider [phone] Allergies No known active allergies Medications buPROPion [...] obesity with BMI of 4 0.0-44.9, adult ([facility] V24, [facility] V28) 09/21/2024 Insomnia 10/20/2019 Major depressive disorder, r ecurrent, moderate ([facility] V24, [facility] V28) 10/20/2019 Overview (09/21/2024): Chronic, not in treatment for years, symptomatic with passive Suicidal Ideation only JENNIFFER (obstructive sleep apnea) 10/20/2019 Overview (09/21/2024): No mention of treatment in transfer record 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 ([facility] V24, [facility] V28) 10/20/2019 Overview (09/21/2024): 2012,Mycosis Fungoides Stage I B, current remisssion, txd w/ topical cream, prev tx'd [facility], has not been seen in f/u for yrs after clinician left [facility] Vitamin D deficiency 10/20/2019 Anxiety 09/15/2019 Immunizations Name Administration Dates Next Due Influenza Quadravalent, MDCK , 0.5ml, preservative free (Flucelvax) 6mo and older 07/07/2021 Influenza trivalent, with preservative (Fluzone; Afluria) 6mo and older 11/30/2015,05/22/2012,09/21/2011,2009 Tdap Tetanus diptheria acell ular pertussis (Boostrix; Adacel) 7yo and older 07/07/2021 Surgical History Surgery Date Site/Laterality Comments OTHER SURGICAL HISTORY 2018 Left PROCEDURE: ND ARTHRS AIDED ANT CRUCIATE LIGM RPR/AGMNTJ/RCNSTJ; COMMENT: ACL repair Medical History Medical History Date Comments Anxiety 09/15/2019 DX:Anxiety Insomnia 10/20/2019 DX:Insomnia Major depressive disorder, r ecurrent, moderate ([facility] V24, [facility] V28) 10/20/2019 DX:Major depressiv e disorder, recurrent, moderate ([facility]); COMMENT: Chronic, not in treatment for years, symptomatic with passive SI only Morbid obesity with BMI of 4 0.0-44.9, adult ([facility] V24, [facility] V28) 10/20/2019 DX:Morbid obesity wit h BMI of 40.0-44.9, adult ([facility]) JENNIFFER (obstructive sleep apnea) 10/20/2019 DX :JENNIFFER (obstructive sleep apnea); COMMENT: No mention of treatment in transfer record Vitamin D deficiency 10/20/2019 DX:Vitamin D deficiency High risk sexual behavior 10/20/2019 DX:Hig h risk sexual behavior; COMMENT: Multiple partners, h/o epididymitis 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 ([facility] V24, [facility] V28) 10/20/2019 DX:Pleomorphic small or med ium-sized cell cutaneous T-cell lymphoma (HCC); COMMENT: 2011,Mycosis Fungoides Stage I B, current remisssion, txd w/ topical cream, prev tx'd [facility], has not been seen in f/u for yrs after clinician left [facility] Family History Medical History Relation Name Comments [...] 5 Years) and At-Risk Patients (6 to 49 Years) (1 of 2 - PCV) 2005 COVID-19 Vaccine (3 - Moderna risk series) 12/14/2020 11/16/2020, 10/19/2020 Social Influencers of Health Screening 08/19/2022 Depression Screening 09/16/2024 Influenza Vaccine (#1) 2025 , 11/30/2015, 05/22/2012, Additional history exists Cholesterol [...] Health Maintenance Results * HIV Screening (03/14/2022) [facility] HIV Screening Abstracted [facility] Provider HEALTH MAINTENANCE Final Result * Hepatitis C Screening (03/14/2022) [facility] Hepatitis C Screening Abstracted [facility] Provider HEALTH MAINTENANCE Final Result * Lipid panel (07/07/2021) [facility] LDL/HDL Ratio 3 0 - 4 Triglycerides 83 0 - 150 mg/dL Cholesterol 167 0 - 200 mg/dL HDL 60 >=40 mg/dL LDL Cholesterol 91 0 - 100 mg/dL Blood Venous blood specimen / Unknown [facility] Provider LAB BLOOD ORDERABLES Naina l Result from Last 3 Months or Most Recently Relevant to Health Maintenance Care Teams Haunted History Tour Guide Relationship Specialty Start Date End Date Edward Lao MD [address] [place] [address] PCP - General Internal Medicine 02/09/22
[2025-04-19 17:34] VITALS: BP 124/86; PULSE 86; O2SAT 98; BMI 41.6
--- NOTE | 2025-04-19 17:34 | A.OFFPC_ITS ---
Vital Signs 04/19/25 17:34 Height 5 ft 11 in Weight 298 lb BMI 41.6 BP 124/86 Blood Pressure Location Lt brachial Position Sitting Pulse 86 Pulse Source Pulse Oximeter Pulse Oximetry (%) 98 Oxygen Delivery Method Room Air Intake Visit Reasons: annual exam Intake Note: Patient here for a physical exam Triple Valve Mechanic Required: No Accompanied by: Self / Same As Patient Allergies No Known Allergies Allergy (Verified 04/19/25 17:43) Medication List - Last Reconciled 04/19/25 by Dayo Strong MD alfuzosin ER 10 mg PO BEDTIME 90 days aripiprazole 10 mg PO QAM buspirone 20 mg PO TID clonidine HCl 0.1 mg PO .FOUR TIME A DAY naproxen 500 mg PO BID PRN 30 days oxcarbazepine 600 mg PO BID 30 days venlafaxine ER 150 mg PO DAILY Tobacco use date assessed: 12/22/24 Dental Screening Dental Screen Date: 12/22/24 HPI annual exam HPI Details Patient comes in today for his annual physical examination States that he feels okay but reports feeling very tired often lately Reports that he wakes up a few times in the middle of the night often as he has 4 small children at home Adds that he's also had problems falling asleep at night lately and has tried taking some OTC gummies to help him sleep at times with mixed results States that his psychiatrist wanted him to try some Trazodone but he is hesitant to take them as he does not want to be knocked out too much that he cannot wake up if needed at night States that his partner has never mentioned that he snores heavily or stops breathing when he is asleep He denies any headaches or dizziness Denies any chest pains, no SOB No nausea/vomiting, no abdominal pain No change in bowel habits noted He is still having some issues with his prostate but is currently on Alfuzosin and is seeing urology regularly for management of his urinary issues He was not able to get his follow up labs done prior to his appointment today sleepy often PFSH Medical History Bipolar disorder with depression Anxiety Vitamin D deficiency Obesity (BMI 30-39.9) Overactive bladder History of cutaneous T-cell lymphoma Anxiety and depression Surgical History History of hand surgery (~04/12/22) History of repair of ACL Family History (Updated 04/19/25 @ 17:39 by ZENAIDA Pritchett) Sister Breast cancer Father Liver cancer Mother Mental health disorder Social History Household Members: Spouse and Children Housing: Other Patient Tobacco Use Status: Former Tobacco user Tobacco use type: Cigarette e-Cigarette/Vaping Use: Never Used Substance Use Type: Marijuana service: No Current occupational status: employed 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 1. Little interest or pleasure in doing things: nearly every day 2. Feeling down, depressed, or hopeless: nearly every day 3. Trouble falling or staying asleep, or sleeping too much: nearly every day 4. Feeling tired or having little energy: nearly every day 5. Poor appetite or overeating: nearly every day 6. Feeling bad about yourself - or that you are a failure or have let yourself or your family down: nearly every day 7. Trouble concentrating on things, such as reading the newspaper or watching television: nearly every day 8. Moving or speaking so slowly that other people could have noticed. Or the opposite - being so fidgety or restless that you have been moving around a lot more than usual: more than half the days 9. Thoughts that you would be better off or of hurting yourself in some way: more than half the days Total score: 25 Depression Screening Interpretation: Positive Depression Screening Follow-up: Existing condition and In treatment Depression Screening Done: Yes 25907 - PHQ-9 Billing: Yes Source: Developed by Drs. Robert Whalen, Odilia Ang, Delmar Ray and colleagues, with an educational rakan from [employer]. Thrive Questionnaire Date Thrive assessed: 04/19/25 I am a: Patient What is your living situation today?: I have a steady place to live Within the past 12 months, did the food you bought not last and you didn't have the money to get more?: I choose not to answer this question Within the past 12 months, did you worry whether your food would run out before you got money to buy more?: I choose not to answer this question Do you have trouble paying for medicines?: No Do you have trouble getting transportation to medical appointments?: No Do you have trouble paying your heating and electricity bill?: No Do you have trouble taking care of your child, family member or friend?: No Do you have trouble with day-to-day activities such as bathing, preparing meals, shopping, managing finances, etc.?: No Are you currently unemployed and looking for a job?: No Are you interested in more education?: I choose not to answer this question Please select the resources that you would like help with: None Currently or been in a relationship where the following occur: No concerns reported THRIVE Score: 0 AUDIT C Alcohol Use Questionnaire (AUDIT-C) 1. How often do you have a drink containing alcohol?: Never Total Score: 0 Score Reviewed/Action Taken: Yes EMILE-7 AMB Questionnaire EMILE-7 Date EMILE - 7 assessed: 04/19/25 Feeling nervous, anxious, or on edge: 1 = Several days Not being able to stop or control worryin = More than half the days Worrying too much about different things: 3 = Nearly every day Trouble relaxin = Nearly every day Being so restless that it is hard to sit still: 1 = Several days Becoming easily annoyed or irritable: 3 = Nearly every day Feeling afraid as if something awful might happen: 2 = More than half the days Total EMILE-7 score (0-4 normal; 5-9 mild; 10-14 moderate; 15-21 severe): 15 Source: Developed by Drs. Robert Whalen, Odilia Ang, Delmar Ray and colleagues, with an educational rakan from [employer]. Review of Systems Const Denies chills, Reports difficulty sleeping (at times), Reports fatigue, Denies fever(s), Denies headache(s), Denies malaise, Denies snoring, Denies stops breathing during sleep and Denies weakness Eyes Denies blurry vision, Denies change in vision, Denies irritation and Denies itchy eyes ENT Denies dysphagia, Denies dizziness, Denies otalgia, Denies headache(s), Denies nasal congestion, Denies neck pain, Denies odynophagia and Denies sore throat Card Denies chest pain, Denies rapid heart rate, Denies irregular heart rhythm, Denies palpitations and Denies dyspnea Resp Denies chest congestion, Denies cough, Denies dyspnea, Denies snoring and Denies wheezing GI Denies abdominal pain, Denies bloating, Denies constipation, Denies dysphagia, Denies heartburn, Denies diarrhea, Denies nausea, Denies odynophagia and Denies vomiting Denies hematuria, Reports difficulty urinating (at times), Denies dysuria, Reports nocturia (improving with Rx), Denies urinary frequency, Reports urinary hesitancy and Denies urinary urgency Musc Denies back pain, Denies arthralgias, Denies joint swelling, Denies muscle weakness and Denies neck pain Skin/Breast Denies change in pigmentation, Denies lesions, Denies rash and Denies unusual bruising Neuro Denies dizziness, Denies headache(s), Denies paresthesias and Denies weakness Endo Reports fatigue and Denies palpitations Aller/Immun Denies itchy eyes and Denies wheezing Physical exam (Primary Care) Vital Signs: Last Vital Signs Pulse 86 04/19/25 17:34 BP 124/86 04/19/25 17:34 Pulse Ox 98 04/19/25 17:34 Oxygen Delivery Method Room Air 04/19/25 17:34 BMI result Body Mass Index 41.6 Tobacco/Smoking Status: Tobacco use Status Tobacco use date assessed 12/22/24 04/19/25 17:41 Patient Tobacco Use Status Former Tobacco user 04/19/25 17:41 Tobacco use type Cigarette 04/19/25 17:41 e-Cigarette/Vaping Use Never Used 04/19/25 17:41 PHQ-9: PHQ-9 Score PHQ-9: Total score 04/19/25 17:41 Depression Screening Interpretation: Positive Depression Screening Follow-up: Existing condition and In treatment Thrive Assessment: Date of Thrive Assessment Date Thrive assessed 04/19/25 04/19/25 17:41 Currently or been in a relationship where the following occur: No concerns reported Const General: no acute distress, alert and awake Orientation/consciousness: patient oriented x3 HENMT Head: Yes normocephalic and Yes atraumatic Ears: external ears normal, TM's normal bilaterally and EAC's normal General nose exam: No nasal discharge present Face and sinus: Yes normal facial exam and Yes sinuses nontender Teeth and gingiva: dentition normal Throat: Yes posterior oropharynx normal and Yes tonsils normal (no TP congestion) Eyes Eyelids: Yes eyelids normal Conjunctivae: conjunctivae normal Pupils: Equal, round and reactive pupils present EOM: EOMs intact bilaterally Neck Neck: Yes no lymphadenopathy and Yes supple Thyroid: Thyroid normal Resp Auscultation: clear to auscultation bilaterally, no rales and no wheezes Cardio Rate: regular rate Rhythm: regular rhythm Heart sounds: no murmurs GI Palpation (GI): Soft to palpation, nontender and No hepatosplenomegaly present Auscultation: normal bowel sounds General: Yes no CVA tenderness Back/Spine/Pelvis Back: no CVA tenderness Thoracic/Lumbar Spine: thoracic and lumbar spine normal to inspection Skin Lesions: no lesions Rashes: no rashes Neuro General: patient oriented x3, moves all extremities, no focal motor deficits and CN's II-XI intact bilaterally Cranial nerves: Yes Equal, round and reactive pupils present Cognition (Neuro): normal cognition Gait exam (Neuro): Normal gait present Extrem General: Yes no clubbing, cyanosis or edema Coding Level of Care Code Est Pt Prev Care 18-39y([id number]) Diagnoses Annual physical exam Z00. History of cutaneous T-cell lymphoma Z85.72 Elevated blood pressure reading R03.0 Vitamin D deficiency E55.9 Fatigue, unspecified type R53.83 Fatigue type: unspecified Overactive bladder N32.81 Insomnia, unspecified type G47.00 Insomnia type: unspecified Anxiety F41.9 Bipolar disorder with depression F31.9 Obesity (BMI 30-39.9) E66.9 Additional Codes PHQ-9 - 20657 - PHQ-9 Billing: Yes ([id number]) Assessment & Plan Assessment & Plan (1) Annual physical exam: Code(s): Z00.00 - Encounter for general adult medical examination without abnormal findings Category: Medical Plan: Check labs - reminded patient that his lab orders have been placed previously and all he has to do is to go and get them done HELGA (2) History of cutaneous T-cell lymphoma: Code(s): Z85.72 - Personal history of non-Hodgkin lymphomas Category: Medical Plan: Patient was reportedly diagnosed with cutaneous T-cell lymphoma over 10 years ago and treated with topical steroids He was following up with oncology at [facility] in [place] regularly in the past but he has not been seen in over 3 years and requested to follow up with specialists locally He was referred to and is now following up with oncology here at [facility] (Dr. Hunter) regularly (3) Elevated blood pressure reading: Code(s): R03.0 - Elevated blood-pressure reading, without diagnosis of hypertension Category: Medical Plan: His blood pressure appears to be better controlled lately Reinforced low sodium diet Patient is advised to continue monitoring his blood pressure regularly (4) Vitamin D deficiency: Code(s): E55.9 - Vitamin D deficiency, unspecified Category: Medical Plan: Corrected Will recheck his Vitamin D level for follow up (5) Fatigue: Code(s): R53.83 - Other fatigue Category: Medical Qualifiers: Fatigue type: unspecified Qualified Code(s): R53.83 - Other fatigue Plan: This is likely related to his lack of sleep / poor sleep quality from having to wake up often in the middle of the night as he has small kids at home presently Discussed with patient that this is less likely due to sleep apnea as he has not been manifesting any other concerning symptoms lately that would make one suspect JENNIFFER (6) Overactive bladder: Code(s): N32.81 - Overactive bladder Category: Medical Plan: He more likely has BPH rather than just OAB Continue Alfusozin ER 10 mg QD Follow up with urology as scheduled (7) Insomnia: Code(s): G47.00 - Insomnia, unspecified Category: Medical Qualifiers: Insomnia type: unspecified Qualified Code(s): G47.00 - Insomnia, unspecified Plan: Sleep hygiene discussed although this may not help much as his sleeping issues is mostly due to having small kids at home States that he has tried taking some OTC gummies, which helped minimally His psychiatrist has reportedly recommended some low dose Trazodone but he is hesitant to take them as he does not want to be knocked out too much when he needs to wake up for his kids (8) Anxiety: Code(s): F41.9 - Anxiety disorder, unspecified Category: Medical Plan: Continue Buspirone 20 mg TID and Clonidine 0.1 mg QID (9) Bipolar disorder with depression: Code(s): F31.9 - Bipolar disorder, unspecified Category: Medical Plan: Continue Oxcarbazepine 600 mg BID, Vanlafaxine ER 150 mg QD and Aripiprazole 10 mg Q AM Follow up with psychiatry as scheduled (10) Obesity (BMI 30-39.9): Code(s): E66.9 - Obesity, unspecified Category: Medical Plan: Reinforced diet/exercise as tolerated/lose weight Plan Follow up in 6 months
== END 2025-04-19 17:56 | disposition home or self-care (01) ==
LOC: HO.HMCH 17:28
PROVIDERS: PCP Internal Medicine; Visit Provider Internal Medicine
DX: Z00.00 Encounter for general adult medical examination without abnormal findings (principal); Z85.72 Personal history of non-Hodgkin lymphomas; R03.0 Elevated blood-pressure reading, without diagnosis of hypertension; E55.9 Vitamin D deficiency, unspecified; R53.83 Other fatigue; N32.81 Overactive bladder; G47.00 Insomnia, unspecified; F41.9 Anxiety disorder, unspecified; F31.9 Bipolar disorder, unspecified; E66.9 Obesity, unspecified

== ENCOUNTER → 2025-04-19 17:27 | Outpatient (BNVA) | payer OTHER, SELFPAY | PROVIDERS: PCP Internal Medicine; Visit Provider Internal Medicine | DX: Z00.00 Encounter for general adult medical examination without abnormal findings (principal); R03.0 Elevated blood-pressure reading, without diagnosis of hypertension; E55.9 Vitamin D deficiency, unspecified; R53.83 Other fatigue; N32.81 Overactive bladder; G47.00 Insomnia, unspecified; F41.9 Anxiety disorder, unspecified; F31.9 Bipolar disorder, unspecified; E66.9 Obesity, unspecified; Z68.41 Body mass index [BMI] 40.0-44.9, adult; Z85.72 Personal history of non-Hodgkin lymphomas | CPT/HCPCS: 96127; 99395 ==